=== PATIENT | female | born 1935 | race Caucasian/White ===

== ENCOUNTER 2016-09-11 23:12 | Inpatient (IN) | payer MEDICARE ==
[~2016-09-11] VITALS: Ht 152.4 cm; Wt 43.2 kg
--- NOTE | ~2016-09-11 | PROC NOTE ---
[place], [place] PROCEDURE NOTE NAME: SUNNY HARTLEY UNIT #: [id number] ROOM: 406 DOCTOR: FAB WILLIS BIRTHDATE: [birth year] DOS: 09/12/2016 Modified barium swallow with recent admission of dizziness, headache, weakness, nausea, vomiting. DIAGNOSES: Maxillary sinusitis, depression, protein calorie malnutrition. Current chest x-ray done on 09/12/2016 indicates no acute liver consolidation, ____ effusion or pulmonary edema compared to last chest x-ray. The patient reports that her daughter does indicate that she chokes a lot. She feels that she does not and she says she can eat anything. METHODS AND MATERIALS: The patient was seated in a chair as her wheelchair would not allow for fluoroscopy due to the height of wheelchair. The patient was hard of hearing but with increased vocal volume and some lip reading cues, she was able to follow simple directions and self-feed. Patient was then administered thin liquid via straw in 3 large sips, applesauce mixed with barium paste and ate ____ cracker mixed with barium paste. ORAL PHASE: The patient demonstrated some mild lengthy mastication, but it was suspected due to her dentition, but was adequate and she orally cleared cavity formed a cohesive bolus and transferred it well into the pharyngeal phase. There was some mild residue with solids, but she was ____ unable to clear with sequential swallows and asked for drink after the modified barium swallow to clear residue orally. PHARYNGEAL PHASE: Adequate timing, there was less than a second delay with the bolus falling into the vallecula where the swallow was triggered but this is normal in some individuals that are ageing. The patient demonstrated some mild to moderate residue was solid, but with dry sequential swallow she cleared that throughout the pharynx, adequate laryngeal ____ as well as adequate epiglottic closure to protect the airway, no penetration aspiration. RECOMMENDATIONS AND IMPRESSION: Functional and normal. Oral and pharyngeal phases. No diet recommendations are made at this time. No therapy warranted. Thank you for this referral. [place], [place] PROCEDURE NOTE NAME: SUNNY HARTLEY UNIT #: [id number] ROOM: 406 DOCTOR: FAB WILLIS BIRTHDATE: [birth year] FAB WILLIS CM:ANDREW:PROCEDURE NOTE 1100 [id number] FAB WILLIS
[~2016-09-11 23:12] MED LIST: ANTIVERT25 MG PO; ASPIRIN81 M1 PO; ATIVAN0.5 MG PO; ATIVAN1 MG PO; BRIN20TA PO; CYMBALTA60 MG PO; DARVOCET N 1001 TAB PO; DEBROX 15ML 1515 ML OT; DIABETA5 MG PO; DILTIAZEM HCL90 MG PO; DILTIAZEM90 MG PO; GLUCOPHAGE1000 MG PO; GLYBURIDE5 MG PO; IRON325 M1 PO; LISINOPRIL10 MG PO; METFORMIN HCL500 MG PO; METFORMIN1000 MG PO; PLAVIX75 MG PO; PRAVACHOL10 MG PO; SERTRALINE HYDR50 MG PO; THERAGRAN1 TA1 PO; VITAMIN D2000 IU PO
[2016-09-11 23:17] VITALS: BP 143/71
[2016-09-11] MEDS ORDERED: METFORMIN HCL500 MG PO (23:21)
[2016-09-11] MEDS ORDERED: DULOXETINE HCL60 MG PO (23:22)
[2016-09-11] MEDS ORDERED: GLYBURIDE5 MG PO (23:22)
[2016-09-11] MEDS ORDERED: NEURONTIN300 MG PO (23:22)
[2016-09-11] MEDS ORDERED: LISINOPRIL10 M1 PO (23:22)
[2016-09-11 23:35] LABS: BASO % 0.4 % (0.0-1.0); EOS # 0.1 10*3/uL (0.0-0.4); EOS % 1.7 % (1.0-4.0); HEMATOCRIT 32.6 % (37.0-47.0); HEMOGLOBIN 10.4 g/dl (12.0-16.0); IG # 0.1 10*3/uL (0.0-0.1); LYMPH # 1.1 10*3/uL (1.3-4.4); LYMPH % 13.7 % (27.0-41.0); MEAN CELL VOLUME 87.9 fl (81.0-99.0); MEAN CORPUSCULAR HGB CONC 31.9 g/dl (33.0-37.0); MONO # 0.4 10*3/uL (0.1-1.0); MONO % 5.3 % (3.0-9.0); NEUT # 6.4 10*3/uL (2.3-7.9); NEUT % 78.3 % (47.0-73.0); PLATELET COUNT AUTOMATED 351 10*3/uL (130-400); RED BLOOD COUNT 3.71 10*6/uL (4.10-5.10); RED CELL DISTRI WIDTH 13.4 % (0-14.5); WHITE BLOOD COUNT 8.2 10*3/uL (4.8-10.8)
[2016-09-12] VITALS (7 sets, daily range): BP systolic 112–184; BP diastolic 49–79
[2016-09-12 00:34] LABS: ALBUMIN 3.3 gm/dl (3.1-4.5); ALKALINE PHOSPHATASE 78 U/L (45-117); BILIRUBIN, DIRECT < 0.1 mg/dL (0.0-0.2); BILIRUBIN, TOTAL 0.2 mg/dl (0.2-1.0); BUN 22 mg/dl (7-24); CARBON DIOXIDE 28 mmol/L (21-32); CHLORIDE 101 mmol/L (98-107); EST GLOM FILT AFRICAN AMERICAN > 60 ml/min; GLUCOSE 306 mg/dL (65-99); MAGNESIUM 1.5 mg/dL (1.5-2.1); POTASSIUM 4.2 mmol/L (3.5-5.1); SGOT/AST 10 IU/L (3-35); SGPT/ALT 16 U/L (12-78); SODIUM 136 mmol/L (136-145); TOTAL PROTEIN 7.5 gm/dL (6.4-8.2)
[2016-09-12 00:35] LABS: TROPONIN I < 0.015 ng/ml (<0.045)
[2016-09-12 00:49] LABS: BILIRUBIN NEGATIVE (NEGATIVE); BLOOD TRACE-INTACT (NEGATIVE); CLARITY CLEAR (CLEAR); COLOR YELLOW (YELLOW); GLUCOSE 3+ (NEGATIVE); KETONE TRACE (NEGATIVE); LEUKO ESTERASE NEGATIVE (NEGATIVE); NITRITE NEGATIVE (NEGATIVE); PROTEIN NEGATIVE (NEGATIVE); SPECIFIC GRAVITY 1.015 (1.005-1.030); UROBILINOGEN 0.2 E.U./dl (0.2-1.0)
[2016-09-12 01:08] LABS: BACTERIA TRACE; EPITHELIAL CELLS 0-5; URINE REFLEX COMMENT NO (NO)
[2016-09-12 06:38] LABS: BASO % 0.4 % (0.0-1.0); EOS # 0.1 10*3/uL (0.0-0.4); EOS % 1.5 % (1.0-4.0); HEMATOCRIT 34.7 % (37.0-47.0); HEMOGLOBIN 11.1 g/dl (12.0-16.0); IG # 0.1 10*3/uL (0.0-0.1); LYMPH # 1.4 10*3/uL (1.3-4.4); LYMPH % 18.3 % (27.0-41.0); MEAN CELL VOLUME 88.5 fl (81.0-99.0); MEAN CORPUSCULAR HGB 28.3 pg (27.0-31.0); MEAN PLATELET VOLUME 10.1 fl (9.6-12.3); MONO # 0.5 10*3/uL (0.1-1.0); NEUT # 5.5 10*3/uL (2.3-7.9); NEUT % 73.1 % (47.0-73.0); PLATELET COUNT AUTOMATED 380 10*3/uL (130-400); RED BLOOD COUNT 3.92 10*6/uL (4.10-5.10); RED CELL DISTRI WIDTH 13.6 % (0-14.5); WHITE BLOOD COUNT 7.5 10*3/uL (4.8-10.8)
[2016-09-12 07:12] LABS: CARBON DIOXIDE 28 mmol/L (21-32); CHLORIDE 103 mmol/L (98-107); GLUCOSE 180 mg/dL (65-99); MAGNESIUM 1.6 mg/dL (1.5-2.1); POTASSIUM 4.6 mmol/L (3.5-5.1); SODIUM 140 mmol/L (136-145)
[2016-09-12 07:25] LABS: BUN 18 mg/dl (7-24); EST GLOM FILT AFRICAN AMERICAN > 60 ml/min; PHOSPHOROUS 3.1 mg/dL (2.5-4.9)
[2016-09-12 08:35] LABS: HEMOGLOBIN A1c 9.2 % (4.8-5.6)
[2016-09-12] MEDS ORDERED: METFORMIN500 MG PO (09:18)
[2016-09-12] MEDS ORDERED: GLYBURIDE5 MG PO (09:18)
[2016-09-12] MEDS ORDERED: DILTIAZEM HCL90 MG PO (09:19)
[2016-09-12] MEDS ORDERED: BUSPAR5 MG PO (09:19)
[2016-09-12 09:56] LABS: VITAMIN D, 25-HYDROXY 27.1 ng/mL (30-100)
[2016-09-12 09:57] LABS: FOLIC ACID > 24.00 ng/mL (>5.38)
[2016-09-13] VITALS: BP 129/53
[2016-09-13 06:29] LABS: BASO % 0.5 % (0.0-1.0); EOS # 0.2 10*3/uL (0.0-0.4); HEMATOCRIT 32.7 % (37.0-47.0); HEMOGLOBIN 10.2 g/dl (12.0-16.0); LYMPH # 1.3 10*3/uL (1.3-4.4); LYMPH % 22.4 % (27.0-41.0); MEAN CELL VOLUME 89.1 fl (81.0-99.0); MEAN CORPUSCULAR HGB 27.8 pg (27.0-31.0); MEAN CORPUSCULAR HGB CONC 31.2 g/dl (33.0-37.0); MEAN PLATELET VOLUME 10.5 fl (9.6-12.3); MONO # 0.4 10*3/uL (0.1-1.0); MONO % 5.9 % (3.0-9.0); NEUT % 66.7 % (47.0-73.0); PLATELET COUNT AUTOMATED 351 10*3/uL (130-400); RED BLOOD COUNT 3.67 10*6/uL (4.10-5.10); RED CELL DISTRI WIDTH 13.5 % (0-14.5)
[2016-09-13 06:55] LABS: BUN 13 mg/dl (7-24); CARBON DIOXIDE 30 mmol/L (21-32); CHLORIDE 108 mmol/L (98-107); EST GLOM FILT AFRICAN AMERICAN > 60 ml/min; GLUCOSE 134 mg/dL (65-99); POTASSIUM 4.5 mmol/L (3.5-5.1); SODIUM 143 mmol/L (136-145)
[2016-09-13 08:00] VITALS: BP 150/88
[2016-09-13 12:00] VITALS: BP 128/86
[2016-09-13 16:00] VITALS: BP 166/60
[2016-09-13 20:00] VITALS: BP 146/71
[2016-09-14] VITALS: BP 138/50
[2016-09-14 06:22] LABS: BASO % 0.3 % (0.0-1.0); EOS # 0.1 10*3/uL (0.0-0.4); EOS % 1.5 % (1.0-4.0); HEMATOCRIT 30.4 % (37.0-47.0); HEMOGLOBIN 9.7 g/dl (12.0-16.0); IG # 0.1 10*3/uL (0.0-0.1); LYMPH # 1.6 10*3/uL (1.3-4.4); LYMPH % 18.6 % (27.0-41.0); MEAN CELL VOLUME 89.1 fl (81.0-99.0); MEAN CORPUSCULAR HGB 28.4 pg (27.0-31.0); MEAN CORPUSCULAR HGB CONC 31.9 g/dl (33.0-37.0); MEAN PLATELET VOLUME 9.6 fl (9.6-12.3); MONO # 0.5 10*3/uL (0.1-1.0); NEUT # 6.4 10*3/uL (2.3-7.9); PLATELET COUNT AUTOMATED 307 10*3/uL (130-400); RED BLOOD COUNT 3.41 10*6/uL (4.10-5.10); RED CELL DISTRI WIDTH 13.8 % (0-14.5); WHITE BLOOD COUNT 8.7 10*3/uL (4.8-10.8)
[2016-09-14 08:00] VITALS: BP 150/74
[2016-09-14 12:00] VITALS: BP 151/83
[2016-09-14 16:00] VITALS: BP 152/73
[2016-09-14 20:00] VITALS: BP 155/77
[2016-09-15] VITALS: BP 140/68
[2016-09-15 06:04] LABS: BASO % 0.5 % (0.0-1.0); EOS # 0.3 10*3/uL (0.0-0.4); EOS % 3.2 % (1.0-4.0); HEMATOCRIT 32.4 % (37.0-47.0); HEMOGLOBIN 10.2 g/dl (12.0-16.0); LYMPH # 1.6 10*3/uL (1.3-4.4); LYMPH % 20.7 % (27.0-41.0); MEAN CELL VOLUME 89.5 fl (81.0-99.0); MEAN CORPUSCULAR HGB 28.2 pg (27.0-31.0); MEAN CORPUSCULAR HGB CONC 31.5 g/dl (33.0-37.0); MEAN PLATELET VOLUME 9.9 fl (9.6-12.3); MONO # 0.5 10*3/uL (0.1-1.0); MONO % 5.8 % (3.0-9.0); NEUT # 5.5 10*3/uL (2.3-7.9); NEUT % 69.3 % (47.0-73.0); PLATELET COUNT AUTOMATED 324 10*3/uL (130-400); RED BLOOD COUNT 3.62 10*6/uL (4.10-5.10); RED CELL DISTRI WIDTH 13.8 % (0-14.5); WHITE BLOOD COUNT 7.9 10*3/uL (4.8-10.8)
[2016-09-15 08:00] VITALS: BP 138/84; BP 184/78
[2016-09-15] MEDS ORDERED: NEURONTIN300 MG PO (11:51)
[2016-09-15] MEDS ORDERED: GLUCOPHAGE500 MG PO (11:51)
[2016-09-15] MEDS ORDERED: HYDROXYZINE PAM25 M1 PO (11:51)
[2016-09-15 12:00] VITALS: BP 149/52
== END 2016-09-15 14:40 | DRG 152 ==
LOC: ED 23:12 → EDHOLD 09-12 00:52 → 4E 09-12 00:52
PROVIDERS: Emergency Medicine; Hospitalist; Internal Medicine
PROC: BD1BYZZ Fluoroscopy of Mouth/Oropharynx using Other Contrast (ICD-10-PCS; principal; 2016-09-12)
DX: J01.00 Acute maxillary sinusitis, unspecified (principal); E11.00 Type 2 diabetes mellitus with hyperosmolarity without nonketotic hyperglycemic-hyperosmolar coma (NKHHC); E86.0 Dehydration; E11.42 Type 2 diabetes mellitus with diabetic polyneuropathy; E44.1 Mild protein-calorie malnutrition; F33.9 Major depressive disorder, recurrent, unspecified; R42 Dizziness and giddiness; R11.2 Nausea with vomiting, unspecified; I10 Essential (primary) hypertension; D64.9 Anemia, unspecified; E11.65 Type 2 diabetes mellitus with hyperglycemia; H90.3 Sensorineural hearing loss, bilateral; D72.825 Bandemia; F41.9 Anxiety disorder, unspecified; R51 Headache; Z96.1 Presence of intraocular lens; Z82.49 Family history of ischemic heart disease and other diseases of the circulatory system; Z82.3 Family history of stroke; Z98.49 Cataract extraction status, unspecified eye; Z79.82 Long term (current) use of aspirin; Z79.899 Other long term (current) drug therapy; Z79.84 Long term (current) use of oral hypoglycemic drugs; Z68.25 Body mass index [BMI] 25.0-25.9, adult; T42.6X5A Adverse effect of other antiepileptic and sedative-hypnotic drugs, initial encounter

== ENCOUNTER 2016-11-03 14:46 | Inpatient (IN) | payer MEDICARE ==
[~2016-11-03] VITALS: Ht 149.8 cm; Wt 44.1 kg
--- NOTE | ~2016-11-03 | CON ---
[place], [place] REPORT OF CONSULTATION NAME: SUNNY HARTLEY UNIT #: [id number] ROOM: 419 DOCTOR: SHAJI CASTILLO,JED BIRTHDATE: [birth year] DOS: 11/05/2016 NOTE: This dictation has been cancelled. JED GIRARD MD CM:CONSTR:REPORT OF CONSULTATION 11/05/16 0843 interface
--- NOTE | ~2016-11-03 | O ---
[place], [place] OPERATIVE NOTE NAME: SUNNY HARTLEY UNIT #: [id number] ROOM: 419 DOCTOR: JED GIRARD MD BIRTHDATE: [birth year] DOS: 11/05/2016 HISTOR OF PRESENT ILLNESS: The patient has presented with abnormal CT scan of the chest, atypical chest pain, . PAST MEDICAL HISTORY: Associated with diabetes, diabetic neuropathy, hypertension, depression, dysphagia, reflux symptomatology. PAST SURGICAL HISTORY: Cataract. SOCIAL HISTORY: Nonsmoker, nonalcohol consumer. FAMILY HISTORY: Noncontributory. ALLERGIES: No known medication. MEDICATIONS: List reviewed including ferrous sulfate, aspirin, and ranitidine. PROCEDURE: Today's procedure part of investigation is panendoscopy plus biopsy. PREMEDICATION: Versed and Diprivan. SCOPE: Olympus forward-viewing gastroscope Q10 video. REPORT: After putting the patient in left lateral position and application of lubricant to the scope, the scope was introduced. Thereafter, under direct visualization, I advanced through the length of the esophagus. Upper and mid esophagus within normal limit. Distal esophagus is expressing multiple distal esophageal ulceration and long segment Saeed esophagus. Photographic series obtained, biopsies obtained. Moderate size hiatal hernia was identified. Gastric pouch was entered. Gastritis of moderate degree seen. Antrum was biopsied for H. pylori. Duodenal bulb, second and third part within normal limit. The patient was gradually extubated and tolerated the procedure well. IMPRESSION: Distal esophageal multiple ulcers, long segment Saeed esophagus, both status post biopsy, moderate size hiatal hernia, mild gastritis. PLAN AND DISCUSSION: This patient has to be switched from H2 lorne to Protonix 40 mg 1 daily and Gaviscon Extra Strength 1 at bedtime, elevation of the head of the bed 6 inches all time. Follow up as an outpatient on distal esophageal biopsies which are expected to be expressing Saeed esophagus. Management as far as PPI is chronic for her. I thank you very much indeed for your kind referral. [place], [place] OPERATIVE NOTE NAME: SUNNY HARTLEY UNIT #: [id number] ROOM: 419 DOCTOR: JED GIRARD MD BIRTHDATE: [birth year] JED GIRARD MD CM:ZOEORD:OPERATIVE NOTE 0829 5 JED GIRARD MD 11/05/1636 interface
[~2016-11-03 14:46] MED LIST changes: +BUSPAR5 MG PO; +DULOXETINE HCL60 MG PO; +GLUCOPHAGE500 MG PO; +HYDROXYZINE PAM25 M1 PO; +LISINOPRIL10 M1 PO; +METFORMIN500 MG PO; +NEURONTIN300 MG PO
[2016-11-03 15:10] VITALS: BP 149/56
[2016-11-03 15:40] LABS: BILIRUBIN NEGATIVE (NEGATIVE); BLOOD NEGATIVE (NEGATIVE); CLARITY CLEAR (CLEAR); COLOR YELLOW (YELLOW); GLUCOSE 3+ (NEGATIVE); KETONE TRACE (NEGATIVE); LEUKO ESTERASE NEGATIVE (NEGATIVE); NITRITE NEGATIVE (NEGATIVE); PH 5.5 (5.0-9.0); PROTEIN NEGATIVE (NEGATIVE); UROBILINOGEN 0.2 E.U./dl (0.2-1.0)
[2016-11-03 15:47] LABS: BACTERIA 1+; RBC 0-2 rbc/hpf (0-2); URINE REFLEX COMMENT YES (NO)
[2016-11-03 16:22] LABS: BASO % 0.6 % (0.0-1.0); EOS # 0.1 10*3/uL (0.0-0.4); EOS % 1.2 % (1.0-4.0); HEMATOCRIT 33.3 % (37.0-47.0); HEMOGLOBIN 10.4 g/dl (12.0-16.0); LYMPH # 1.5 10*3/uL (1.3-4.4); LYMPH % 21.1 % (27.0-41.0); MEAN CORPUSCULAR HGB 28.4 pg (27.0-31.0); MEAN CORPUSCULAR HGB CONC 31.2 g/dl (33.0-37.0); MEAN PLATELET VOLUME 10.9 fl (9.6-12.3); MONO # 0.4 10*3/uL (0.1-1.0); MONO % 5.4 % (3.0-9.0); NEUT # 5.2 10*3/uL (2.3-7.9); NEUT % 71.4 % (47.0-73.0); PLATELET COUNT AUTOMATED 271 10*3/uL (130-400); RED BLOOD COUNT 3.66 10*6/uL (4.10-5.10); RED CELL DISTRI WIDTH 15.3 % (0-14.5); WHITE BLOOD COUNT 7.3 10*3/uL (4.8-10.8)
[2016-11-03 16:32] LABS: INTERNATIONAL NORM RATIO 0.9 (2.0-3.5)
[2016-11-03 16:37] LABS: ALBUMIN 3.3 gm/dl (3.1-4.5); ALKALINE PHOSPHATASE 90 U/L (45-117); BILIRUBIN, TOTAL 0.1 mg/dl (0.2-1.0); BUN 27 mg/dl (7-24); CARBON DIOXIDE 28 mmol/L (21-32); CHLORIDE 105 mmol/L (98-107); EST GLOM FILT AFRICAN AMERICAN > 60 ml/min; GLUCOSE 256 mg/dL (65-99); POTASSIUM 4.8 mmol/L (3.5-5.1); SGOT/AST 11 IU/L (3-35); SGPT/ALT 17 U/L (12-78); SODIUM 140 mmol/L (136-145); TOTAL PROTEIN 7.3 gm/dL (6.4-8.2)
[2016-11-03 16:40] LABS: CKMB 3.9 ng/ml (0.5-3.6); CPK 74 U/L (26-192); MAGNESIUM 1.7 mg/dL (1.5-2.1)
[2016-11-03 16:45] LABS: TROPONIN I < 0.015 ng/ml (<0.045)
[2016-11-03 17:57] VITALS: BP 142/62
[2016-11-03] MEDS ORDERED: METFORMIN HYD1000 MG PO (18:05)
[2016-11-03] MEDS ORDERED: VITAMIN D-32000 UNI1 PO (18:39)
[2016-11-03] MEDS ORDERED: COLACE100 MG PO (18:40)
[2016-11-03] MEDS ORDERED: FERROUS SULFAT324 M2 PO (18:41)
[2016-11-03] MEDS ORDERED: NEURONTIN300 MG PO (18:41)
[2016-11-03] MEDS ORDERED: ZANTAC 150150 MG PO (18:42)
[2016-11-03] MEDS ORDERED: CYMBALTA60 MG PO (18:42)
[2016-11-03 18:45] VITALS: BP 132/55
[2016-11-03 20:00] VITALS: BP 144/56
[2016-11-04] VITALS: BP 132/53
[2016-11-04 06:51] LABS: BASO % 0.5 % (0.0-1.0); EOS # 0.2 10*3/uL (0.0-0.4); EOS % 3.1 % (1.0-4.0); HEMATOCRIT 32.5 % (37.0-47.0); HEMOGLOBIN 10.2 g/dl (12.0-16.0); LYMPH # 1.4 10*3/uL (1.3-4.4); LYMPH % 21.9 % (27.0-41.0); MEAN CELL VOLUME 89.8 fl (81.0-99.0); MEAN CORPUSCULAR HGB 28.2 pg (27.0-31.0); MEAN CORPUSCULAR HGB CONC 31.4 g/dl (33.0-37.0); MEAN PLATELET VOLUME 11.4 fl (9.6-12.3); MONO # 0.5 10*3/uL (0.1-1.0); MONO % 7.6 % (3.0-9.0); NEUT # 4.3 10*3/uL (2.3-7.9); NEUT % 66.6 % (47.0-73.0); PLATELET COUNT AUTOMATED 242 10*3/uL (130-400); RED BLOOD COUNT 3.62 10*6/uL (4.10-5.10); WHITE BLOOD COUNT 6.5 10*3/uL (4.8-10.8)
[2016-11-04 06:57] LABS: BUN 21 mg/dl (7-24); CARBON DIOXIDE 27 mmol/L (21-32); CHLORIDE 104 mmol/L (98-107); EST GLOM FILT AFRICAN AMERICAN > 60 ml/min; GLUCOSE 207 mg/dL (65-99); MAGNESIUM 1.6 mg/dL (1.5-2.1); PHOSPHOROUS 2.5 mg/dL (2.5-4.9); POTASSIUM 4.5 mmol/L (3.5-5.1); SODIUM 139 mmol/L (136-145)
[2016-11-04 07:15] LABS: PROTHROMBIN TIME 10.3 SECONDS (9.0-12.4)
[2016-11-04 08:00] VITALS: BP 140/62
[2016-11-04 12:00] VITALS: BP 120/48
[2016-11-04 16:00] VITALS: BP 125/63
[2016-11-04 20:00] VITALS: BP 140/49
[2016-11-05] VITALS (9 sets, daily range): BP systolic 136–168; BP diastolic 52–88
[2016-11-05 07:10] LABS: BASO % 0.5 % (0.0-1.0); EOS # 0.2 10*3/uL (0.0-0.4); EOS % 3.3 % (1.0-4.0); HEMATOCRIT 29.4 % (37.0-47.0); HEMOGLOBIN 9.1 g/dl (12.0-16.0); LYMPH # 1.6 10*3/uL (1.3-4.4); LYMPH % 27.6 % (27.0-41.0); MEAN CELL VOLUME 90.5 fl (81.0-99.0); MEAN PLATELET VOLUME 11.3 fl (9.6-12.3); MONO # 0.4 10*3/uL (0.1-1.0); MONO % 6.7 % (3.0-9.0); NEUT # 3.5 10*3/uL (2.3-7.9); NEUT % 61.7 % (47.0-73.0); PLATELET COUNT AUTOMATED 226 10*3/uL (130-400); RED BLOOD COUNT 3.25 10*6/uL (4.10-5.10); RED CELL DISTRI WIDTH 14.9 % (0-14.5); WHITE BLOOD COUNT 5.7 10*3/uL (4.8-10.8)
[2016-11-05 07:35] LABS: BUN 14 mg/dl (7-24); CARBON DIOXIDE 25 mmol/L (21-32); CHLORIDE 107 mmol/L (98-107); EST GLOM FILT AFRICAN AMERICAN > 60 ml/min; GLUCOSE 126 mg/dL (65-99); POTASSIUM 4.2 mmol/L (3.5-5.1); SODIUM 141 mmol/L (136-145)
[2016-11-05] MEDS ORDERED: GAVISCON 80 MG-1 CT1 PO (09:57)
[2016-11-05] MEDS ORDERED: PANTOPRAZOLE SO40 MG PO (09:57)
[2016-11-06] VITALS: BP 151/69
[2016-11-06 05:12] LABS: BUN 11 mg/dl (7-24); CARBON DIOXIDE 28 mmol/L (21-32); CHLORIDE 108 mmol/L (98-107); EST GLOM FILT AFRICAN AMERICAN > 60 ml/min; GLUCOSE 177 mg/dL (65-99); POTASSIUM 4.3 mmol/L (3.5-5.1); SODIUM 140 mmol/L (136-145)
[2016-11-06 06:08] LABS: BASO % 0.4 % (0.0-1.0); EOS # 0.2 10*3/uL (0.0-0.4); EOS % 1.9 % (1.0-4.0); HEMATOCRIT 30.9 % (37.0-47.0); HEMOGLOBIN 9.5 g/dl (12.0-16.0); LYMPH # 1.6 10*3/uL (1.3-4.4); LYMPH % 20.4 % (27.0-41.0); MEAN CELL VOLUME 92.2 fl (81.0-99.0); MEAN CORPUSCULAR HGB 28.4 pg (27.0-31.0); MEAN CORPUSCULAR HGB CONC 30.7 g/dl (33.0-37.0); MEAN PLATELET VOLUME 11.5 fl (9.6-12.3); MONO # 0.5 10*3/uL (0.1-1.0); MONO % 6.1 % (3.0-9.0); NEUT # 5.5 10*3/uL (2.3-7.9); NEUT % 70.8 % (47.0-73.0); PLATELET COUNT AUTOMATED 243 10*3/uL (130-400); RED BLOOD COUNT 3.35 10*6/uL (4.10-5.10); RED CELL DISTRI WIDTH 15.3 % (0-14.5); WHITE BLOOD COUNT 7.8 10*3/uL (4.8-10.8)
[2016-11-06 08:00] VITALS: BP 160/66
[2016-11-06] MEDS ORDERED: CIPRO500 MG PO (09:21)
[2016-11-06] MEDS ORDERED: ATIVAN0.5 MG PO (09:22)
[2016-11-06 12:00] VITALS: BP 142/73
== END 2016-11-06 13:01 | disposition home or self-care (01) | DRG 689 ==
LOC: ED 14:46 → EDHOLD 17:39 → 4E 17:39
PROVIDERS: Emergency Medicine; Internal Medicine Nephrology; Registered Nurse
DX: N39.0 Urinary tract infection, site not specified (principal); G93.41 Metabolic encephalopathy; E11.49 Type 2 diabetes mellitus with other diabetic neurological complication; E11.65 Type 2 diabetes mellitus with hyperglycemia; K22.10 Ulcer of esophagus without bleeding; K22.8 Other specified diseases of esophagus; R41.840 Attention and concentration deficit; D64.9 Anemia, unspecified; D72.810 Lymphocytopenia; R81 Glycosuria; I10 Essential (primary) hypertension; F32.9 Major depressive disorder, single episode, unspecified; K20.9 Esophagitis, unspecified; F41.9 Anxiety disorder, unspecified; K29.70 Gastritis, unspecified, without bleeding; K22.70 Barrett's esophagus without dysplasia; K44.9 Diaphragmatic hernia without obstruction or gangrene; R26.9 Unspecified abnormalities of gait and mobility; H91.90 Unspecified hearing loss, unspecified ear; Z96.1 Presence of intraocular lens; Z60.2 Problems related to living alone; Z98.42 Cataract extraction status, left eye; Z98.41 Cataract extraction status, right eye; Z82.3 Family history of stroke; Z82.49 Family history of ischemic heart disease and other diseases of the circulatory system; Z79.82 Long term (current) use of aspirin; Z79.84 Long term (current) use of oral hypoglycemic drugs; Z79.899 Other long term (current) drug therapy

== ENCOUNTER 2016-12-01 12:07 | Inpatient (IN) | payer MEDICARE ==
[~2016-12-01] VITALS: Ht 149.8 cm; Wt 46.3 kg
[~2016-12-01 12:07] MED LIST changes: +CIPRO500 MG PO; +COLACE100 MG PO; +FERROUS SULFAT324 M2 PO; +GAVISCON 80 MG-1 CT1 PO; +METFORMIN HYD1000 MG PO; +PANTOPRAZOLE SO40 MG PO; +VITAMIN D-32000 UNI1 PO; +ZANTAC 150150 MG PO
[2016-12-01 12:13] VITALS: BP 130/50
[2016-12-01 12:40] LABS: BASO # 0.1 10*3/uL (0.0-0.1); BASO % 0.6 % (0.0-1.0); EOS # 0.3 10*3/uL (0.0-0.4); EOS % 3.3 % (1.0-4.0); HEMATOCRIT 31.1 % (37.0-47.0); HEMOGLOBIN 9.7 g/dl (12.0-16.0); LYMPH # 1.6 10*3/uL (1.3-4.4); LYMPH % 20.8 % (27.0-41.0); MEAN CELL VOLUME 90.4 fl (81.0-99.0); MEAN CORPUSCULAR HGB 28.2 pg (27.0-31.0); MEAN CORPUSCULAR HGB CONC 31.2 g/dl (33.0-37.0); MEAN PLATELET VOLUME 10.6 fl (9.6-12.3); MONO # 0.5 10*3/uL (0.1-1.0); NEUT # 5.4 10*3/uL (2.3-7.9); PLATELET COUNT AUTOMATED 297 10*3/uL (130-400); RED BLOOD COUNT 3.44 10*6/uL (4.10-5.10); RED CELL DISTRI WIDTH 14.9 % (0-14.5); WHITE BLOOD COUNT 7.8 10*3/uL (4.8-10.8)
[2016-12-01 12:56] LABS: ALBUMIN 3.3 gm/dl (3.1-4.5); ALKALINE PHOSPHATASE 92 U/L (45-117); BUN 26 mg/dl (7-24); CHLORIDE 104 mmol/L (98-107); CREATININE 0.79 mg/dL (0.55-1.02); MAGNESIUM 1.8 mg/dL (1.5-2.1); SGOT/AST 24 IU/L (3-35); SGPT/ALT 35 U/L (12-78); SODIUM 139 mmol/L (136-145); TOTAL PROTEIN 7.6 gm/dL (6.4-8.2)
--- NOTE | 2016-12-01 12:58 | NUR ---
REPORT BEING CALLED AT THIS TIME FOR PT ADMISSION.
--- NOTE | 2016-12-01 13:12 | NUR ---
PT BEING TRANSFERRED TO 4TH FLOOR AT THIS TIME.
[2016-12-01 13:25] VITALS: BP 167/64
--- NOTE | 2016-12-01 13:42 | NUR ---
[facility] 80, admitted to , under the services of MIYA Wilburn DO with a diagnosis of ANGIOEDEMA LIPS. Chief complaint is RASH/HIVES. Patient arrived via bed from ER. Monitor applied. Initial assessment completed. Vital signs taken and recorded. MIYA WILBURN DO notified of admission to the unit. Orders received. See assessment for past medical history, medications and allergies. Patient and/or family oriented to unit. [facility]. Clothing/patient valuable form completed. LINDY ROBERTSON
[2016-12-01] MEDS ORDERED: REMERON15 M2 PO (14:07)
[2016-12-01] MEDS ORDERED: BUSPAR5 MG PO (14:08)
[2016-12-01 16:19] VITALS: BP 131/57
--- NOTE | 2016-12-01 20:10 | NUR ---
WOUND PHOTOS TAKEN AT THIS TIME OF SKIN TEARS TO PT'S RIGHT ARM. AWAITING WOUND CARE ORDERS, IN THE MEANTIME A NON-ADHERENT DRESSING AND ROLLED GAUZE APPLIED. PT TOLERATED WELL.
[2016-12-01 20:25] VITALS: BP 155/71
--- NOTE | 2016-12-01 20:55 | NUR ---
MEDICATED WITH TYLENOL PER PRN ORDER FOR COMPLAINTS OF BACK ACHE. WILL MONITOR FOR EFFECTIVENESS.
--- NOTE | 2016-12-01 21:16 | NUR ---
DR ARNOLD NOTIFIED OF PT'S BLOOD GLUCOSE OF 417, AND PT IS NOT ORDERED SLIDING SCALE COVERAGE.
--- NOTE | 2016-12-01 22:30 | NUR ---
PT STATES TYLENOL EFFECTIVE FOR BACK ACHES RELIEF.
[2016-12-02] VITALS: BP 131/63
--- NOTE | 2016-12-02 02:56 | NUR ---
PT VERY RESTLESS AT THIS TIME. MEDICATED WITH ATIVAN PER PRN ORDER. WILL MONITOR FOR EFFECTIVENESS.
--- NOTE | 2016-12-02 04:00 | NUR ---
Patient resting quietly with no c/o discomfort. Respirations easy and regular. Vital signs stable. No overt distress. Ativan appears effective.
[2016-12-02 06:59] LABS: BASO % 0.1 % (0.0-1.0); HEMOGLOBIN 9.7 g/dl (12.0-16.0); LYMPH # 0.8 10*3/uL (1.3-4.4); LYMPH % 10.7 % (27.0-41.0); MEAN CELL VOLUME 90.4 fl (81.0-99.0); MEAN CORPUSCULAR HGB 28.3 pg (27.0-31.0); MEAN CORPUSCULAR HGB CONC 31.3 g/dl (33.0-37.0); MEAN PLATELET VOLUME 11.6 fl (9.6-12.3); MONO # 0.1 10*3/uL (0.1-1.0); MONO % 0.8 % (3.0-9.0); NEUT # 6.6 10*3/uL (2.3-7.9); NEUT % 87.7 % (47.0-73.0); PLATELET COUNT AUTOMATED 300 10*3/uL (130-400); RED BLOOD COUNT 3.43 10*6/uL (4.10-5.10); RED CELL DISTRI WIDTH 14.7 % (0-14.5); WHITE BLOOD COUNT 7.5 10*3/uL (4.8-10.8)
--- NOTE | 2016-12-02 07:30 | NUR ---
ASSUMED CARE OF PT AT THIS TIME, PT CONTINUES TO GET 0OB MULTIPLE TIMES ALARMS SOUNDING STAAFF PRESENT, EDUCATION PROVIDED ON THE IMPORTANCE OF CALLING FOR ASSSISTANCE USING CALL LIGHT, PT HAS PERIODS OF BEING FORGETFUL
[2016-12-02 07:38] LABS: ALBUMIN 3.3 gm/dl (3.1-4.5); ALKALINE PHOSPHATASE 97 U/L (45-117); BUN 27 mg/dl (7-24); CHLORIDE 105 mmol/L (98-107); CREATININE 0.85 mg/dL (0.55-1.02); POTASSIUM 4.5 mmol/L (3.5-5.1); SGOT/AST 21 IU/L (3-35); SGPT/ALT 33 U/L (12-78); SODIUM 139 mmol/L (136-145); TOTAL PROTEIN 7.7 gm/dL (6.4-8.2)
[2016-12-02 08:00] VITALS: BP 176/86
--- NOTE | 2016-12-02 08:30 | NUR ---
SUNNY HARTLEY [id number] Please refer to the physician's history and physical for past medical history, comorbid conditions, and allergies. Diagnosis: ANGIOEDEMA OF LIPS Gerard Score: 17,AT RISK WOUND DESCRIPTIONS: Location of the wound: right upper arm proximal Type of wound: skin tear Thickness: Partial Size: 0.4cm x 0.7cm x <0.1cm Tunneling: none Undermining: none Sinus Tract: none Presence of Exudate: none Amount: None Color: Red Odor: None Periwound Skin Appearance: Normal Wound edges: approximated Pain (associated with wound): none at time of assessment How does patient state this happened? pt stated she fell and hit the bedside table Location of the wound: right upper arm distal Type of wound: skin tear Thickness: Partial Size: 0.3cm x 2.1cm x <0.1cm Tunneling: none Undermining: none Sinus Tract: none Presence of Exudate: Amount: None Color: Red Odor: None Periwound Skin Appearance: Normal Wound edges: approximated Pain (associated with wound): none at time of assessment Surface the patient is resting on: Isoflex SKIN PREVENTION RECOMMENDATION: 1. Pressure redistribution support surface as appropriate 2. Elevate heels 3. Remove boots/TEDS every shift and reapply 4. Head of bed 30 degrees as tolerated 5. Assess nutrition and hydration 6. Manage moisture 7. Avoid the use of containment devices while in bed 8. Use absorptive products on surfaces limit layers of linens on bed 9. Turn and reposition every 1-2 hours in bed and every 1 hour in chair as tolerated 10. Weight shifts every 15 minutes while up in chair 11. Offloading with pillows or device to keep heels elevated off bed 12. Monitor skin at least every shift 13. Inspect under medical devices twice a day WOUND TREATMENT RECOMMENDATIONS: Skin tear guidelines.
--- NOTE | 2016-12-02 09:00 | NUR ---
Internal Grinder Tender in to talk to patient. Patient states lives at home with alone. There are few steps in the home. Physician: stewart falcon [facility]acy: [facility] Home health services: none Patient's level of ADLs: INDEPENDENT Patient has working utilities: all working DME: cane/walker Follow-up physician's appointment after d/c: will be made by hospitalist nurse director upon discharge Does patient want to access PORTAL?: no Discharge plan discussed with patient patient lives at home alone, she has help from her family, she uses a cane or walker at home, she is independent in adls and meal preparation, patient will be going back home when medically stable and denies any home needs. MIQUEL TELLES
[2016-12-02] MEDS ORDERED: PREDNISONE20 M1 PO (10:13)
--- NOTE | 2016-12-02 10:14 | NUR ---
PT C/O H/A ADMININSTERED PRN TYLENO, 650MG ORDERED, RATES PAIN 410, WILL MONITOR EFFECTS
[2016-12-02 10:58] LABS: BILIRUBIN NEGATIVE (NEGATIVE); BLOOD NEGATIVE (NEGATIVE); CLARITY CLEAR (CLEAR); COLOR YELLOW (YELLOW); GLUCOSE 3+ (NEGATIVE); KETONE TRACE (NEGATIVE); LEUKO ESTERASE NEGATIVE (NEGATIVE); NITRITE NEGATIVE (NEGATIVE); PH 5.5 (5.0-9.0); SPECIFIC GRAVITY 1.015 (1.005-1.030); UROBILINOGEN 0.2 E.U./dl (0.2-1.0)
--- NOTE | 2016-12-02 11:00 | NUR ---
PT NO LONGER C/O H/A, TYLENOL 650MG PO PRN EFFECTIVE AT THIS TIME
[2016-12-02 11:09] LABS: BACTERIA TRACE; MUCOUS 1+; WBC 0-2 wbc/hpf (0-5)
--- NOTE | 2016-12-02 11:47 | NUR ---
Discharge instructions reviewed with patient/family. Patient receptive and verbalizes understanding. Follow-up care arranged. Written instructions given to patient/family. STEVEN MYLES
== END 2016-12-02 11:47 | disposition home or self-care (01) | DRG 916 ==
LOC: ED 12:07 → 4E 12:32 → 4NE 12:32 → 4E 12:34
PROVIDERS: Emergency Medicine; Registered Nurse; ADMIT Internal Medicine
DX: T78.3XXA Angioneurotic edema, initial encounter (principal); E44.0 Moderate protein-calorie malnutrition; E11.40 Type 2 diabetes mellitus with diabetic neuropathy, unspecified; K22.70 Barrett's esophagus without dysplasia; T46.4X5A Adverse effect of angiotensin-converting-enzyme inhibitors, initial encounter; F32.9 Major depressive disorder, single episode, unspecified; Z96.1 Presence of intraocular lens; E55.9 Vitamin D deficiency, unspecified; D64.9 Anemia, unspecified; H91.90 Unspecified hearing loss, unspecified ear; I10 Essential (primary) hypertension; Z68.20 Body mass index [BMI] 20.0-20.9, adult; Z98.42 Cataract extraction status, left eye; Z98.41 Cataract extraction status, right eye; Y92.89 Other specified places as the place of occurrence of the external cause; Z82.49 Family history of ischemic heart disease and other diseases of the circulatory system; Z82.3 Family history of stroke; Z79.82 Long term (current) use of aspirin; Z79.84 Long term (current) use of oral hypoglycemic drugs; Z79.899 Other long term (current) drug therapy

== ENCOUNTER 2017-08-15 07:51 | Inpatient (IN) | payer MEDICARE ==
[~2017-08-15] VITALS: Ht 149.8 cm; Wt 45.2 kg
[~2017-08-15 07:51] MED LIST changes: +PREDNISONE20 M1 PO; +REMERON15 M2 PO
[2017-08-15 07:52] VITALS: BP 137/73
[2017-08-15 08:18] LABS: BASO % 0.6 % (0.0-1.0); EOS # 0.1 10*3/uL (0.0-0.4); EOS % 1.7 % (1.0-4.0); HEMATOCRIT 39.3 % (37.0-47.0); HEMOGLOBIN 12.8 g/dl (12.0-16.0); LYMPH # 1.5 10*3/uL (1.3-4.4); LYMPH % 21.4 % (27.0-41.0); MEAN CELL VOLUME 90.6 fl (81.0-99.0); MEAN CORPUSCULAR HGB 29.5 pg (27.0-31.0); MEAN CORPUSCULAR HGB CONC 32.6 g/dl (33.0-37.0); MEAN PLATELET VOLUME 10.9 fl (9.6-12.3); MONO # 0.4 10*3/uL (0.1-1.0); MONO % 5.8 % (3.0-9.0); NEUT # 4.9 10*3/uL (2.3-7.9); NEUT % 70.2 % (47.0-73.0); PLATELET COUNT AUTOMATED 285 10*3/uL (130-400); RED BLOOD COUNT 4.34 10*6/uL (4.10-5.10); RED CELL DISTRI WIDTH 14.4 % (0-14.5)
[2017-08-15 08:27] LABS: ACT PARTIAL THROMBO TIME 24.4 SECONDS (20.8-31.5); INTERNATIONAL NORM RATIO 0.9 (2.0-3.5)
[2017-08-15 08:34] LABS: ALBUMIN 3.9 gm/dl (3.1-4.5); ALKALINE PHOSPHATASE 76 U/L (45-117); BUN 21 mg/dl (7-24); CHLORIDE 100 mmol/L (98-107); CREATININE 0.83 mg/dL (0.55-1.02); POTASSIUM 4.1 mmol/L (3.5-5.1); SGOT/AST 11 IU/L (3-35); SGPT/ALT 18 U/L (12-78); SODIUM 136 mmol/L (136-145); TOTAL PROTEIN 8.1 gm/dL (6.4-8.2)
[2017-08-15 08:58] LABS: BILIRUBIN NEGATIVE (NEGATIVE); BLOOD NEGATIVE (NEGATIVE); CLARITY CLEAR (CLEAR); COLOR YELLOW (YELLOW); GLUCOSE 1+ (NEGATIVE); KETONE TRACE (NEGATIVE); LEUKO ESTERASE 2+ (NEGATIVE); NITRITE NEGATIVE (NEGATIVE); PH 5.5 (5.0-9.0); SPECIFIC GRAVITY 1.025 (1.005-1.030); UROBILINOGEN 0.2 E.U./dl (0.2-1.0)
[2017-08-15 09:20] LABS: BACTERIA 2+; WBC 21-30 wbc/hpf (0-5)
[2017-08-15 11:20] VITALS: BP 118/78
[2017-08-15 12:12] VITALS: BP 110/66
[2017-08-15 16:00] VITALS: BP 178/68
[2017-08-15 20:00] VITALS: BP 148/66
[2017-08-16] VITALS: BP 160/80
[2017-08-16 06:55] LABS: BASO # 0.1 10*3/uL (0.0-0.1); BASO % 0.7 % (0.0-1.0); EOS # 0.1 10*3/uL (0.0-0.4); EOS % 1.3 % (1.0-4.0); HEMATOCRIT 37.4 % (37.0-47.0); HEMOGLOBIN 11.9 g/dl (12.0-16.0); LYMPH # 1.7 10*3/uL (1.3-4.4); MEAN CELL VOLUME 91.4 fl (81.0-99.0); MEAN CORPUSCULAR HGB 29.1 pg (27.0-31.0); MEAN CORPUSCULAR HGB CONC 31.8 g/dl (33.0-37.0); MEAN PLATELET VOLUME 10.6 fl (9.6-12.3); MONO # 0.5 10*3/uL (0.1-1.0); MONO % 5.5 % (3.0-9.0); NEUT % 72.1 % (47.0-73.0); PLATELET COUNT AUTOMATED 283 10*3/uL (130-400); RED BLOOD COUNT 4.09 10*6/uL (4.10-5.10); RED CELL DISTRI WIDTH 14.4 % (0-14.5); WHITE BLOOD COUNT 8.3 10*3/uL (4.8-10.8)
[2017-08-16 07:07] LABS: ALBUMIN 3.6 gm/dl (3.1-4.5); ALKALINE PHOSPHATASE 74 U/L (45-117); BUN 18 mg/dl (7-24); CHLORIDE 102 mmol/L (98-107); CHOLESTEROL 242 mg/dL (<200); CREATININE 0.64 mg/dL (0.55-1.02); HDL CHOLESTEROL 62 mg/dl (40-60); LDL CHOLESTEROL 165 mg/dL (9-159); PHOSPHOROUS 3.7 mg/dL (2.5-4.9); POTASSIUM 3.8 mmol/L (3.5-5.1); SGOT/AST 13 IU/L (3-35); SGPT/ALT 17 U/L (12-78); SODIUM 139 mmol/L (136-145); TOTAL PROTEIN 7.8 gm/dL (6.4-8.2); TRIGLYCERIDES 77 mg/dl (<150); VLDL CHOLESTEROL 15 mg/dL (6-40)
[2017-08-16 07:29] LABS: ACT PARTIAL THROMBO TIME 23.6 SECONDS (20.8-31.5); INTERNATIONAL NORM RATIO 0.9 (2.0-3.5)
[2017-08-16 08:00] VITALS: BP 144/79
[2017-08-16 08:59] LABS: VITAMIN D, 25-HYDROXY 38.5 ng/mL (30-100)
[2017-08-16 12:00] VITALS: BP 138/86
[2017-08-16 16:00] VITALS: BP 145/67
[2017-08-16 20:00] VITALS: BP 140/68
[2017-08-17] VITALS: BP 140/70
[2017-08-17 06:42] LABS: BASO % 0.5 % (0.0-1.0); BUN 15 mg/dl (7-24); CHLORIDE 103 mmol/L (98-107); CREATININE 0.54 mg/dL (0.55-1.02); EOS # 0.2 10*3/uL (0.0-0.4); EOS % 2.3 % (1.0-4.0); LYMPH # 1.7 10*3/uL (1.3-4.4); MEAN CELL VOLUME 91.9 fl (81.0-99.0); MEAN CORPUSCULAR HGB 28.9 pg (27.0-31.0); MEAN CORPUSCULAR HGB CONC 31.4 g/dl (33.0-37.0); MONO # 0.5 10*3/uL (0.1-1.0); MONO % 7.8 % (3.0-9.0); NEUT # 4.3 10*3/uL (2.3-7.9); NEUT % 64.1 % (47.0-73.0); PLATELET COUNT AUTOMATED 259 10*3/uL (130-400); RED BLOOD COUNT 3.81 10*6/uL (4.10-5.10); RED CELL DISTRI WIDTH 14.6 % (0-14.5); SODIUM 140 mmol/L (136-145); WHITE BLOOD COUNT 6.6 10*3/uL (4.8-10.8)
[2017-08-17 08:00] VITALS: BP 151/81
[2017-08-17 12:00] VITALS: BP 153/48
[2017-08-17 16:00] VITALS: BP 131/63
[2017-08-17 20:00] VITALS: BP 129/64
[2017-08-18] VITALS: BP 143/56
[2017-08-18 01:37] VITALS: BP 152/58
[2017-08-18 08:00] VITALS: BP 160/83
[2017-08-18] MEDS ORDERED: ZOSYN 3.373.375 GM/5 IV (10:23)
[2017-08-18] MEDS ORDERED: Humalog SQ (10:23)
[2017-08-18] MEDS ORDERED: LORAZEPAM0.5 MG PO (10:26)
[2017-08-18] MEDS ORDERED: LIPITOR10 MG PO (10:26)
[2017-08-18] MEDS ORDERED: TYLENOL325 M2 PO (10:28)
[2017-08-18] MEDS ORDERED: AKWA TEARS 15 M15 ML OPH (10:28)
[2017-08-18] MEDS ORDERED: 50% DEXTRO25 GM/50 M IV (10:28)
[2017-08-18 12:00] VITALS: BP 155/82
== END 2017-08-18 15:00 | disposition other institution (70) | DRG 871 ==
LOC: ED 07:51 → 4E 09:53 → EDHOLD 09:53 → 4E 10:10
PROVIDERS: Internal Medicine; Student in an Organized Health Care Education/Training Program
DX: A41.9 Sepsis, unspecified organism (principal); G93.41 Metabolic encephalopathy; E11.42 Type 2 diabetes mellitus with diabetic polyneuropathy; E11.65 Type 2 diabetes mellitus with hyperglycemia; N39.0 Urinary tract infection, site not specified; F32.9 Major depressive disorder, single episode, unspecified; I10 Essential (primary) hypertension; E86.0 Dehydration; D72.810 Lymphocytopenia; R81 Glycosuria; R82.4 Acetonuria; L50.9 Urticaria, unspecified; R80.9 Proteinuria, unspecified; E55.9 Vitamin D deficiency, unspecified; D64.9 Anemia, unspecified; H91.90 Unspecified hearing loss, unspecified ear; R53.83 Other fatigue; K22.719 Barrett's esophagus with dysplasia, unspecified; Z82.49 Family history of ischemic heart disease and other diseases of the circulatory system; Z82.3 Family history of stroke; Z88.8 Allergy status to other drugs, medicaments and biological substances; Z79.82 Long term (current) use of aspirin; Z79.4 Long term (current) use of insulin; Z79.84 Long term (current) use of oral hypoglycemic drugs; Z79.899 Other long term (current) drug therapy; Z98.42 Cataract extraction status, left eye; Z98.41 Cataract extraction status, right eye; Z87.440 Personal history of urinary (tract) infections; B96.5 Pseudomonas (aeruginosa) (mallei) (pseudomallei) as the cause of diseases classified elsewhere

== ENCOUNTER 2017-08-31 23:47 | Emergency (ER) | payer MEDICARE ==
[~2017-08-31] VITALS: Ht 149.8 cm
[~2017-08-31 23:47] MED LIST changes: +50% DEXTRO25 GM/50 M IV; +AKWA TEARS 15 M15 ML OPH; +Humalog SQ; +LIPITOR10 MG PO; +LORAZEPAM0.5 MG PO; +TYLENOL325 M2 PO; +ZOSYN 3.373.375 GM/5 IV
[2017-09-01 01:20] LABS: ALBUMIN 3.1 gm/dl (3.1-4.5); ALKALINE PHOSPHATASE 79 U/L (45-117); BUN 18 mg/dl (7-24); CHLORIDE 107 mmol/L (98-107); CREATININE 0.73 mg/dL (0.55-1.02); POTASSIUM 4.2 mmol/L (3.5-5.1); SGOT/AST 16 IU/L (3-35); SGPT/ALT 29 U/L (12-78); SODIUM 141 mmol/L (136-145); TOTAL PROTEIN 7.2 gm/dL (6.4-8.2)
[2017-09-01 01:22] LABS: BASO # 0.1 10*3/uL (0.0-0.1); BASO % 0.6 % (0.0-1.0); EOS # 0.4 10*3/uL (0.0-0.4); EOS % 4.8 % (1.0-4.0); HEMATOCRIT 31.4 % (37.0-47.0); HEMOGLOBIN 9.8 g/dl (12.0-16.0); LYMPH # 1.5 10*3/uL (1.3-4.4); LYMPH % 17.4 % (27.0-41.0); MEAN CORPUSCULAR HGB 29.3 pg (27.0-31.0); MEAN CORPUSCULAR HGB CONC 31.2 g/dl (33.0-37.0); MEAN PLATELET VOLUME 10.8 fl (9.6-12.3); MONO # 0.7 10*3/uL (0.1-1.0); NEUT # 6.1 10*3/uL (2.3-7.9); NEUT % 68.6 % (47.0-73.0); PLATELET COUNT AUTOMATED 349 10*3/uL (130-400); RED BLOOD COUNT 3.34 10*6/uL (4.10-5.10); WHITE BLOOD COUNT 8.9 10*3/uL (4.8-10.8)
[2017-09-01 01:25] LABS: TROPONIN I < 0.015 ng/ml (<0.045)
== END 2017-09-01 05:21 | disposition home or self-care (01) ==
LOC: ED 23:47
PROVIDERS: Emergency Medicine Emergency Medical Services
DX: S00.83XA Contusion of other part of head, initial encounter (principal); S80.01XA Contusion of right knee, initial encounter; M17.11 Unilateral primary osteoarthritis, right knee; I10 Essential (primary) hypertension; F32.9 Major depressive disorder, single episode, unspecified; E11.40 Type 2 diabetes mellitus with diabetic neuropathy, unspecified; Z88.8 Allergy status to other drugs, medicaments and biological substances; Z79.82 Long term (current) use of aspirin; W22.8XXA Striking against or struck by other objects, initial encounter; Y93.89 Activity, other specified; Y92.89 Other specified places as the place of occurrence of the external cause; Y99.8 Other external cause status

== ENCOUNTER 2017-10-21 11:06 | Emergency (ER) | payer MEDICARE ==
[~2017-10-21] VITALS: Ht 152.4 cm; Wt 49.9 kg
--- NOTE | ~2017-10-21 | EKG ---
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 Electronically Signed On 10-21-2017 14:26:44 PDT by Lonny Guo MD CM:EKGRPT:ELECTROCARDIOGRAM REPORT [id number] 1426 CHELA TEMPLE DRAFT REPORT CHELA ORR DO
[2017-10-21 12:14] LABS: BASO # 0.1 10*3/uL (0.0-0.1); BASO % 0.7 % (0.0-1.0); EOS # 0.1 10*3/uL (0.0-0.4); EOS % 1.4 % (1.0-4.0); HEMATOCRIT 33.9 % (37.0-47.0); HEMOGLOBIN 10.8 g/dl (12.0-16.0); LYMPH # 1.7 10*3/uL (1.3-4.4); LYMPH % 24.3 % (27.0-41.0); MEAN CELL VOLUME 92.4 fl (81.0-99.0); MEAN CORPUSCULAR HGB 29.4 pg (27.0-31.0); MEAN CORPUSCULAR HGB CONC 31.9 g/dl (33.0-37.0); MEAN PLATELET VOLUME 10.8 fl (9.6-12.3); MONO # 0.4 10*3/uL (0.1-1.0); MONO % 5.9 % (3.0-9.0); NEUT # 4.8 10*3/uL (2.3-7.9); NEUT % 67.3 % (47.0-73.0); PLATELET COUNT AUTOMATED 292 10*3/uL (130-400); RED BLOOD COUNT 3.67 10*6/uL (4.10-5.10); RED CELL DISTRI WIDTH 13.7 % (0-14.5); WHITE BLOOD COUNT 7.1 10*3/uL (4.8-10.8)
[2017-10-21 12:22] LABS: ACT PARTIAL THROMBO TIME 23.6 SECONDS (20.8-31.5)
[2017-10-21 12:28] LABS: ALBUMIN 3.7 gm/dl (3.1-4.5); ALKALINE PHOSPHATASE 66 U/L (45-117); BUN 19 mg/dl (7-24); CHLORIDE 103 mmol/L (98-107); CREATININE 0.73 mg/dL (0.55-1.02); LIPASE 66 U/L (73-393); POTASSIUM 4.2 mmol/L (3.5-5.1); SGOT/AST 13 IU/L (3-35); SGPT/ALT 17 U/L (12-78); SODIUM 139 mmol/L (136-145); TOTAL PROTEIN 7.4 gm/dL (6.4-8.2); TROPONIN I < 0.015 ng/ml (<0.045)
[2017-10-21 13:05] LABS: BILIRUBIN NEGATIVE (NEGATIVE); BLOOD NEGATIVE (NEGATIVE); CLARITY SL CLOUDY (CLEAR); COLOR YELLOW (YELLOW); GLUCOSE 3+ (NEGATIVE); KETONE NEGATIVE (NEGATIVE); LEUKO ESTERASE NEGATIVE (NEGATIVE); NITRITE NEGATIVE (NEGATIVE); SPECIFIC GRAVITY 1.015 (1.005-1.030); UROBILINOGEN 0.2 E.U./dl (0.2-1.0)
[2017-10-21 13:16] LABS: BACTERIA TRACE; MUCOUS 1+
== END 2017-10-21 13:06 | disposition home or self-care (01) ==
LOC: ED 11:06
PROVIDERS: Emergency Medicine
DX: E86.0 Dehydration (principal); R19.7 Diarrhea, unspecified; R53.1 Weakness; E11.40 Type 2 diabetes mellitus with diabetic neuropathy, unspecified; I10 Essential (primary) hypertension; Z88.8 Allergy status to other drugs, medicaments and biological substances; Z79.899 Other long term (current) drug therapy; Z79.82 Long term (current) use of aspirin

== ENCOUNTER 2018-03-15 10:10 | Emergency (ER) | payer MEDICARE ==
[~2018-03-15] VITALS: Ht 154.9 cm; Wt 45.4 kg
--- NOTE | ~2018-03-15 | EKG ---
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
[2018-03-15 10:32] LABS: BASO % 0.5 % (0.0-1.0); EOS # 0.1 10*3/uL (0.0-0.4); EOS % 1.1 % (1.0-4.0); HEMATOCRIT 35.2 % (37.0-47.0); HEMOGLOBIN 11.6 g/dl (12.0-16.0); LYMPH # 1.4 10*3/uL (1.3-4.4); LYMPH % 19.4 % (27.0-41.0); MEAN CELL VOLUME 90.5 fl (81.0-99.0); MEAN CORPUSCULAR HGB 29.8 pg (27.0-31.0); MEAN PLATELET VOLUME 10.4 fl (9.6-12.3); MONO # 0.4 10*3/uL (0.1-1.0); MONO % 5.4 % (3.0-9.0); NEUT # 5.4 10*3/uL (2.3-7.9); NEUT % 73.1 % (47.0-73.0); PLATELET COUNT AUTOMATED 254 10*3/uL (130-400); RED BLOOD COUNT 3.89 10*6/uL (4.10-5.10); RED CELL DISTRI WIDTH 13.7 % (0-14.5); WHITE BLOOD COUNT 7.4 10*3/uL (4.8-10.8)
[2018-03-15 10:56] LABS: ALBUMIN 3.5 gm/dl (3.1-4.5); ALKALINE PHOSPHATASE 66 U/L (45-117); BUN 19 mg/dl (7-24); CHLORIDE 100 mmol/L (98-107); CREATININE 0.81 mg/dL (0.55-1.02); POTASSIUM 4.3 mmol/L (3.5-5.1); SGOT/AST 9 IU/L (3-35); SGPT/ALT 17 U/L (12-78); SODIUM 136 mmol/L (136-145); TOTAL PROTEIN 7.2 gm/dL (6.4-8.2); TROPONIN I 0.021 ng/ml (<0.045)
[2018-03-15 11:27] LABS: BILIRUBIN NEGATIVE (NEGATIVE); BLOOD NEGATIVE (NEGATIVE); CLARITY CLEAR (CLEAR); COLOR YELLOW (YELLOW); GLUCOSE 3+ (NEGATIVE); KETONE TRACE (NEGATIVE); LEUKO ESTERASE NEGATIVE (NEGATIVE); NITRITE NEGATIVE (NEGATIVE); UROBILINOGEN 0.2 E.U./dl (0.2-1.0)
[2018-03-15 11:40] LABS: BACTERIA TRACE
== END 2018-03-15 12:11 | disposition home or self-care (01) ==
LOC: ED 10:10
PROVIDERS: Emergency Medicine
DX: R51 Headache (principal); R53.1 Weakness; R42 Dizziness and giddiness; E11.40 Type 2 diabetes mellitus with diabetic neuropathy, unspecified; I10 Essential (primary) hypertension; Z79.899 Other long term (current) drug therapy; Z79.84 Long term (current) use of oral hypoglycemic drugs; Z79.82 Long term (current) use of aspirin

== ENCOUNTER 2018-04-08 11:03 | Inpatient (IN) | payer MEDICARE ==
--- NOTE | ~2018-04-08 | EKG ---
[place], [place] ELECTROCARDIOGRAM REPORT NAME: SUNNY HARTLEY UNIT #: [id number] ROOM: 420 DOCTOR: STEPHANIE DRAFT REPORT BIRTHDATE: [birth year] [facility] Test Date: 2018-04-08 Test Time: 11:22:14 Pat Name: SUNNY HARTLEY Department: Room: 420 Gender: F Neonatal Surgeon: MATTHIAS : 1935 Requested By: CHELA ORR Order Number: [id number] Reading MD: Konstantin Rodriguez MD Measurements Intervals [place] Rate: 68 P: -42 NJ: 107 QRS: -52 QRSD: 76 T: 35 QT: 383 QTc: 408 Interpretive Statements Sinus rhythm Short [place] interval Abnormal R-wave progression, late transition Inferior infarct, old Compared to ECG 03/15/2018 10:28:59 Short [place] interval now present Myocardial infarct finding still present Electronically Signed On 04-09-2018 10:47:56 PST by Konstantin Rodriguez MD CM:EKGRPT:ELECTROCARDIOGRAM REPORT [id number] 1047 CHELA TEMPLE DRAFT REPORT CHELA ORR DO
[2018-04-08 11:04] VITALS: BP 133/57
[2018-04-08 11:35] LABS: BASO % 0.4 % (0.0-1.0); EOS # 0.1 10*3/uL (0.0-0.4); EOS % 1.1 % (1.0-4.0); HEMATOCRIT 37.4 % (37.0-47.0); LYMPH # 1.4 10*3/uL (1.3-4.4); LYMPH % 19.2 % (27.0-41.0); MEAN CELL VOLUME 91.9 fl (81.0-99.0); MEAN CORPUSCULAR HGB 29.5 pg (27.0-31.0); MEAN CORPUSCULAR HGB CONC 32.1 g/dl (33.0-37.0); MEAN PLATELET VOLUME 10.7 fl (9.6-12.3); MONO # 0.4 10*3/uL (0.1-1.0); MONO % 4.9 % (3.0-9.0); NEUT # 5.5 10*3/uL (2.3-7.9); PLATELET COUNT AUTOMATED 270 10*3/uL (130-400); RED BLOOD COUNT 4.07 10*6/uL (4.10-5.10); RED CELL DISTRI WIDTH 13.9 % (0-14.5); WHITE BLOOD COUNT 7.5 10*3/uL (4.8-10.8)
[2018-04-08 11:44] LABS: ACT PARTIAL THROMBO TIME 23.6 SECONDS (20.8-31.5)
[2018-04-08 11:45] LABS: BILIRUBIN NEGATIVE (NEGATIVE); BLOOD NEGATIVE (NEGATIVE); CLARITY CLEAR (CLEAR); COLOR YELLOW (YELLOW); GLUCOSE 3+ (NEGATIVE); KETONE TRACE (NEGATIVE); LEUKO ESTERASE NEGATIVE (NEGATIVE); NITRITE NEGATIVE (NEGATIVE); PH 5.5 (5.0-9.0); SPECIFIC GRAVITY 1.015 (1.005-1.030); UROBILINOGEN 0.2 E.U./dl (0.2-1.0)
[2018-04-08 11:52] LABS: ALBUMIN 3.3 gm/dl (3.1-4.5); ALKALINE PHOSPHATASE 67 U/L (45-117); BUN 20 mg/dl (7-24); CHLORIDE 103 mmol/L (98-107); CREATININE 0.88 mg/dL (0.55-1.02); LIPASE 83 U/L (73-393); POTASSIUM 4.9 mmol/L (3.5-5.1); SGOT/AST 9 IU/L (3-35); SGPT/ALT 19 U/L (12-78); SODIUM 135 mmol/L (136-145); TOTAL PROTEIN 7.1 gm/dL (6.4-8.2); TROPONIN I 0.019 ng/ml (<0.045)
--- NOTE | 2018-04-08 14:40 | NUR ---
SMALL SCAB TO LT INNER ANKLE WHICH SHE STATES IS FROM BUMPING HER LEG ON SOMETHING.
--- NOTE | 2018-04-08 14:50 | NUR ---
Time: 1449 A 82 year old FEMALE admitted to under services of MIYA WILBURN DO, Pt. arrived via wheel chair from ER. Chief complaint: METABOLIC ENCEPHALOPATHY, UNSTEADY GAIT. KELY CHAVIRA
[2018-04-08] MEDS ORDERED: GLIPIZIDE5 MG PO (15:33)
[2018-04-08 16:00] VITALS: BP 174/79
[2018-04-08 20:00] VITALS: BP 150/68
[2018-04-09] VITALS: BP 170/82
--- NOTE | 2018-04-09 03:21 | NUR ---
DR OSORIO AWARE OF PATIENT REQUESTING ATIVAN
--- NOTE | 2018-04-09 04:51 | NUR ---
MEDICATED WITH PRN ATIVAN FOR ANXIOUSNESS
[2018-04-09 07:02] LABS: BASO % 0.5 % (0.0-1.0); EOS # 0.1 10*3/uL (0.0-0.4); EOS % 1.4 % (1.0-4.0); HEMATOCRIT 38.7 % (37.0-47.0); HEMOGLOBIN 12.1 g/dl (12.0-16.0); LYMPH # 1.3 10*3/uL (1.3-4.4); LYMPH % 20.8 % (27.0-41.0); MEAN CELL VOLUME 91.9 fl (81.0-99.0); MEAN CORPUSCULAR HGB 28.7 pg (27.0-31.0); MEAN CORPUSCULAR HGB CONC 31.3 g/dl (33.0-37.0); MEAN PLATELET VOLUME 10.5 fl (9.6-12.3); MONO # 0.4 10*3/uL (0.1-1.0); MONO % 5.6 % (3.0-9.0); NEUT # 4.5 10*3/uL (2.3-7.9); NEUT % 71.2 % (47.0-73.0); PLATELET COUNT AUTOMATED 240 10*3/uL (130-400); RED BLOOD COUNT 4.21 10*6/uL (4.10-5.10); RED CELL DISTRI WIDTH 13.7 % (0-14.5); WHITE BLOOD COUNT 6.3 10*3/uL (4.8-10.8)
--- NOTE | 2018-04-09 07:03 | NUR ---
PHYSICAL THERAPY Nursing screen received. PT orders also received. Thank you. Alice Tello,PT
[2018-04-09 07:21] LABS: CHLORIDE 107 mmol/L (98-107); POTASSIUM 4.3 mmol/L (3.5-5.1); SODIUM 142 mmol/L (136-145)
[2018-04-09 07:30] LABS: ALBUMIN 3.2 gm/dl (3.1-4.5); ALKALINE PHOSPHATASE 62 U/L (45-117); BUN 12 mg/dl (7-24); CHOLESTEROL 176 mg/dL (<200); CREATININE 0.62 mg/dL (0.55-1.02); HDL CHOLESTEROL 51 mg/dl (40-60); LDL CHOLESTEROL 102 mg/dL (9-159); PHOSPHOROUS 3.1 mg/dL (2.5-4.9); SGOT/AST 6 IU/L (3-35); SGPT/ALT 18 U/L (12-78); TOTAL PROTEIN 6.8 gm/dL (6.4-8.2); TRIGLYCERIDES 117 mg/dl (<150); VLDL CHOLESTEROL 23 mg/dL (6-40)
[2018-04-09 08:00] VITALS: BP 159/83
[2018-04-09 08:56] LABS: VITAMIN D, 25-HYDROXY 39.6 ng/mL (30-100)
--- NOTE | 2018-04-09 09:00 | NUR ---
Director Emergency Services in to talk to patient. Patient states lives at home with alone. There are few steps in the home. Physician: stewart falcon [facility]acy: [facility] Home health services: none Patient's level of ADLs: MINIMAL ASSIST Patient has working utilities: all working DME: roderick faria Follow-up physician's appointment after d/c: will be made by hospitalist nurse director upon discharge Does patient want to access PORTAL?: no Discharge plan discussed with patient patient lives at home alone, she has children checking in on her, patient states she hasn't been getting around very well lately and would like to go to a SNF for rehab. patient stated she was at [facility] and would like to go back there. estate planner will make referral to [facility] for when patient is medically stable for discharge. patient will need a three night stay and. will be able to go on Thursday if accepted by [facility] and medically stable MIQUEL TELLES
--- NOTE | 2018-04-09 09:05 | NUR ---
PHYSICAL THERAPY PAtient evaluated on 4, full evaluation to follow. Continue with PT as per plan of care with fall and alarm precautions. MAy require SNF. PAtient is moderate complexity via chart review, tests and evaluation: [id number]. Thank you for this reeferral. Alice Tello,PT
--- NOTE | 2018-04-09 09:11 | NUR ---
Salome was evaluated by occupational therapy this date secondary to reports of decreased strength and inability to care for herself at home. Patient lives alone and recently requires increased assist with ADL's and home management. She was able to ambulate with min assist secondary to a loss of balance x1 during assessment. She tolerated standing sinkside and completing a grooming activity for 5 minutes x2 with a rest break between. She requires min assist with lower body dressing and pulling her pants over her hips. She currently requires increased assist with ADL's and functional transfers secondary to decreased balance, decreased endurance, and decreased strength. Continued occupational therapy in a SNF is recommended when patient is discharged. Daniela Pool OTR/Chan
--- NOTE | 2018-04-09 10:50 | NUR ---
Patient requested referral to [facility]. Contacted facility and faxed referral. patient requires 3 night stay. patient ok to go on Thursday04/11/2018 if medically stable for discharge.
[2018-04-09 12:00] VITALS: BP 151/62
--- NOTE | 2018-04-09 13:30 | NUR ---
OT NOTE Pt was seen this P.M. 1:1 for 20 minute OT session. Upon arrival pt was supine in bed, pt identified by name and . Pt had no complaints at this time. Pt transferred supine to sit EOB with SBA. While sitting EOB pt donned her shoes with SBA. Challenged pt's static standing tolerance needed for increased I in self care tasks and functional transfers and pt was able to tolerate aprox 5 minutes at a time before requiring a seated rest break. Challenged pt's dynamic standing tolerance needed for increased I and enhanced safety in ADLs/IADLs and pt was able to maintain F- stanidng balance while crossing midline and reaching forwards or picking up off the floor. Pt had LOB forwards while reaching out in front of her that required Yoshi to correct. Functional mobility completed to recliner with CGA ORTHOPEDIC PODIATRIST and one LOB occuring while turning that required Yoshi to correct due to being impulsive and having poor safety awarenss. Pt was left sitting upright in recliner with call light in hand, tray table in place, and body alarm activated for safety. Continue with rec d/C plan to SNF. FLORA Garcia/Chan
--- NOTE | 2018-04-09 13:41 | NUR ---
PHYSICAL THERAPY Patient presented to therapy in supine with head of bed elevated and report of no pain and feeling better. Patient agrees to therapy session. Patient was identified by name and . Patient transferred supine to sitting at EOB with MIN A X 1. Patient performed STS transfer with MIN A X 1 with verbal cues for pushing off bed with hands. Patient ambulated with W/W and CGA X 1 for 100' x 1 with occassional LOB , corrected with verbal cues from therapist. Patient transferred to bedside chair with MIN A X 1 with verbal cues for putting hands back on armrests. Patient was left in sitting position with call light within reach, LEs raised, and chair alarm attached. Patient was 1:1 with SHERIFF DEPUTY for 20 minutes total. Patient recommended to SNF upon D/C. VEGA AVENDANO SHERIFF DEPUTY
[2018-04-09 16:00] VITALS: BP 139/68
[2018-04-09 20:00] VITALS: BP 159/70
--- NOTE | 2018-04-09 20:05 | NUR ---
DR FERRER AWARE OF NEW SKIN TEAR ON RIGHT PETTY. ORDER TAKEN FOR HYDROGEL AND OPTIFOAM
[2018-04-10] VITALS: BP 158/71
--- NOTE | 2018-04-10 04:20 | NUR ---
PRN ATIVAN GIVEN FOR C/O ANXIOUSNESS
[2018-04-10 08:00] VITALS: BP 157/98
--- NOTE | 2018-04-10 08:23 | NUR ---
IN BED AWAKE ALERT AND ORIENTED X3, VERY [place]. NO S/S OF DISTRESS. WILL CONT TO MONITOR. CALL LIGHT IN REACH. SEE ASSESS.
--- NOTE | 2018-04-10 10:20 | NUR ---
TYLENOL GIVEN AT THIS TIME FOR C/O HEADACHE. WILL CONT TO MONITOR. CALL LIGHT IN REACH.
--- NOTE | 2018-04-10 11:20 | NUR ---
TYLENOL EFF FOR PAIN. WILL CONT TO MONITOR. CALL LIGHT IN REACH.
[2018-04-10 12:00] VITALS: BP 129/54
--- NOTE | 2018-04-10 15:28 | NUR ---
PT VERY ANXIOUS. REQUESTED HER ATIVAN WHICH WAS GIVEN AT THIS TIME. WILL CONT TO MONITOR. CALL LIGHT IN REACH.
[2018-04-10 16:00] VITALS: BP 155/68
--- NOTE | 2018-04-10 16:28 | NUR ---
ATIVAN EFF AT THIS TIME. WILL CONT TO MONITOR. CALL LIGHT IN REACH.
[2018-04-10 20:00] VITALS: BP 160/74
--- NOTE | 2018-04-10 21:00 | NUR ---
AMBULATORY IN ROOM WITH NO ACUTE DISTRESS NOTED. RESPIRATIONS EASY. LUNGS DIMINISHED, CLEAR. PULSE OX 98% RA. CALL LIGHT WITHIN REACH. NO VOICED COMPLAINTS
[2018-04-11] VITALS: BP 150/60
--- NOTE | 2018-04-11 | NUR ---
SLEEPING. RESPIRATIONS EASY. VSS. CALL LIGHT WITHIN REACH. BED ALARM MAINTAINED
--- NOTE | 2018-04-11 01:50 | NUR ---
REQUESTED AND RECEIVED ATIVAN PER PRN ORDER FOR COMPLAINTS OF ANXIETY. WILL MONITOR FOR EFFECTIVENESS
--- NOTE | 2018-04-11 03:00 | NUR ---
ATIVAN EFFECTIVE. SLEEPING
--- NOTE | 2018-04-11 06:00 | NUR ---
SLEPT THROUGHOUT NIGHT WITH NO DISTRESS NOTED. RESPIRATIONS EASY. CALL LIGHT WITHIN REACH. NO VOICED COMPLAINTS THIS SHIFT
[2018-04-11 08:00] VITALS: BP 149/80
[2018-04-11 12:00] VITALS: BP 141/64
--- NOTE | 2018-04-11 12:10 | NUR ---
REPORT CALLED TO MEI AT [facility].
--- NOTE | 2018-04-11 13:07 | NUR ---
PATIENT REQUESTING ANXIETY MEDICATION. ATIVAN ADMINISTERED PRESCRIBED. WILL MONITOR FOR EFFECTIVENESS,
--- NOTE | 2018-04-11 13:42 | NUR ---
PT DISCHARGED AT THIS TIME VIA PRIVATE CAR TO [facility]. IV REMOVED AND PRESSURE DRESSING APPLIED.
--- NOTE | 2018-04-12 06:32 | NUR ---
PHYSICAL THERAPY Nursing screen received. PT orders also received. Thank you. Alice Tello,PT
--- NOTE | 2018-04-12 06:32 | NUR ---
PHYSICAL THERAPY CO-SIGN I approve of the Phyical Therapy notes written above. CATARINA BRITO PT
--- NOTE | 2018-04-12 08:06 | NUR ---
Nursing screen received 04/09/18 and patient was discharged 04/11/18. Violeta Marley OTR/l
--- NOTE | 2018-04-12 08:17 | NUR ---
OCCUPATIONAL THERAPY CO-SIGN I approve of the Occupational Therapy notes written above. ALPHONSO PADILLA OTR/Chan
== END 2018-04-11 14:19 | disposition other institution (70) | DRG 640 ==
LOC: ED 11:03 → EDHOLD 13:45 → 4E 13:45
PROVIDERS: Emergency Medicine; Student in an Organized Health Care Education/Training Program; ADMIT Internal Medicine
DX: E86.0 Dehydration (principal); G93.41 Metabolic encephalopathy; E87.2 Acidosis; E55.9 Vitamin D deficiency, unspecified; R26.9 Unspecified abnormalities of gait and mobility; E11.42 Type 2 diabetes mellitus with diabetic polyneuropathy; F32.9 Major depressive disorder, single episode, unspecified; I10 Essential (primary) hypertension; K22.70 Barrett's esophagus without dysplasia; H91.11 Presbycusis, right ear; R81 Glycosuria; E11.65 Type 2 diabetes mellitus with hyperglycemia; M19.90 Unspecified osteoarthritis, unspecified site; Z79.4 Long term (current) use of insulin; F41.1 Generalized anxiety disorder; Z88.9 Allergy status to unspecified drugs, medicaments and biological substances; Z82.3 Family history of stroke; Z82.49 Family history of ischemic heart disease and other diseases of the circulatory system

== ENCOUNTER → 2018-12-31 | Day surgery (SDC) | payer MEDICARE ==
[~2018-12-31] VITALS: Ht 149.8 cm; Wt 52.2 kg
[~2018-12-31] MED LIST changes: +GLIPIZIDE5 MG PO
--- NOTE | ~2018-12-31 | O ---
[place], [place] OPERATIVE NOTE NAME: SUNNY HARTLEY UNIT #: [id number] ROOM: DOCTOR: JED GIRARD MD BIRTHDATE: [birth year] DOS: 12/31/2018 GASTROENDOSCOPIC REPORT HISTORY OF PRESENT ILLNESS: This is an 83-year-old patient who has presented with chief complaint of dysphagia, undergoing investigation. The patient is residing in a group home. PAST MEDICAL HISTORY: ____, diabetes mellitus and hypertension. ALLERGIES: LISINOPRIL. PROCEDURE: Today's procedure part of investigation is graham endoscopy plus biopsy plus balloon dilation of esophagus. PREMEDICATION: Propofol. SCOPE: Olympus forward-viewing gastroscope Q10 video. REPORT: After putting the patient in left lateral position and application of lubricant to the scope, the scope was introduced. Thereafter, under direct visualization, advanced through the length of esophagus without difficulty. Long segment Saeed esophagus was noticed. Hiatal hernia was seen, which is relatively large. Gastritis noticed. Antral biopsy obtained. Duodenal bulb, second and third part within normal limits. The patient extubated after antral biopsy and esophageal dilation to size 20. IMPRESSION: Benign esophageal stricture, status post balloon dilation, hiatal hernia and gastritis. PLAN AND DISCUSSION: Antireflux measures, elevation of the head of the bed 6 inches all time, Gaviscon as antacid of choice. The patient is going to be continued with pantoprazole 40 mg every day. Thank you very much indeed. [place], [place] OPERATIVE NOTE NAME: SUNNY HARTLEY UNIT #: [id number] ROOM: DOCTOR: JED GIRARD MD BIRTHDATE: [birth year] JED GIRARD MD CM:OPRECORD:OPERATIVE NOTE 1503 1642 JED GIRARD MD 12/31/18 1639 interface
[2018-12-31 15:04] VITALS: BP 133/73
[2018-12-31 15:19] VITALS: BP 161/83
[2018-12-31 15:34] VITALS: BP 172/80
== END | disposition home or self-care (01) ==
LOC: SDC 12-29 11:00
DX: K29.50 Unspecified chronic gastritis without bleeding (principal); K21.9 Gastro-esophageal reflux disease without esophagitis; K44.9 Diaphragmatic hernia without obstruction or gangrene; F41.9 Anxiety disorder, unspecified; I10 Essential (primary) hypertension; E11.9 Type 2 diabetes mellitus without complications; F32.9 Major depressive disorder, single episode, unspecified; E78.00 Pure hypercholesterolemia, unspecified; M19.90 Unspecified osteoarthritis, unspecified site; Z98.890 Other specified postprocedural states; Z79.899 Other long term (current) drug therapy; Z88.8 Allergy status to other drugs, medicaments and biological substances

== ENCOUNTER → 2019-02-02 | Outpatient (CLI) | payer MEDICARE ==
--- NOTE | ~2019-02-02 | PROC NOTE ---
[place], [place] PROCEDURE NOTE NAME: SUNNY HARTLEY UNIT #: [id number] ROOM: DOCTOR: SALBADORGWYN BIRTHDATE: [birth year] DOS: 02/02/2019 MODIFIED BARIUM SWALLOW ORDERING PHYSICIAN: Dr. Jones. RADIOLOGIST: Dr. Olguin. BACKGROUND INFORMATION: The patient, an 83-year-old female, who was seen for a modified barium swallow. This test was ordered due to choking with meals. The patient was alert and pleasantly confused. She reported that she chokes with meals, but was unable to provide any other information. Reports indicate GERD and oropharyngeal dysphagia. [facility], the patient receives a regular diet and thin liquid. During today's assessment, respiratory status was within normal limits. Oral peripheral examination revealed presence of partial upper denture with good fit reported. Lingual, labial and buccal skills were within normal limits in terms of strength, range of motion and coordination. The patient was able to volitionally cough and swallow. METHODS AND MATERIALS USED FOR THE EXAMINATION: The patient was positioned in the lateral plane and the exam was viewed under fluoroscopy. The patient was presented with a variety of consistencies to assess swallowing skills including applesauce mixed with barium presented in half teaspoon amounts, barium-coated cookie given in bite size piece and thin liquid barium taken by cup and straw. ORAL PHASE: Unremarkable. PHARYNGEAL PHASE: Unremarkable. ESOPHAGEAL PHASE: This phase of the swallow was not formally assessed during this exam. IMPRESSIONS AND RECOMMENDATIONS: Based upon assessment results, this 83-year-old patient presents with oral and pharyngeal swallowing skills within normal limits across all consistencies. Recommend the patient remain on regular diet and thin liquid. Results and recommendations were shared with the patient and written copy was provided for education of penitentiary staff. No further therapy is indicated at this time. Thank you very much for this referral. Should you have any questions regarding this patient, please contact the speech pathologist at [phone]. [place], [place] PROCEDURE NOTE NAME: SUNNY HARTLEY UNIT #: [id number] ROOM: DOCTOR: SALBADORGWYN BIRTHDATE: [birth year] [facility] CM:PROCNOTE:PROCEDURE NOTE 1514 2338 [facility]
--- NOTE | ~2019-02-02 | SLPPOC ---
[place], [place] CLIENT SERVICE PROFESSIONAL PLAN OF CARE NAME: SUNNY HARTLEY UNIT #: [id number] ROOM: DOCTOR: COCO LEVINE Patient Name: SUNNY HARTLEY Date: 02/02/2019 Patient Date of : 1935 [facility] Start of Care: 01/11/2019 Reason for Treatment: RAD/SH Visits since start of care: 1 Primary Care Physician: COCO LEVINE Referring Physician: COCO LEVINE Speech-Language Pathology Initial Evaluation Plan of Care Reason for Visit RAD/SH Arrival Information Subjective Initial evaluation completed to generate medical record. [facility] for further information. Medical History Past Medical History Therapist Signature(s) Signed By: Caitie Kruger State License #: [id number] 02/02/2019, 2:59 PM Referring Physician Signature I certify the need for these services furnished under this plan of treatment and while under my care. COCO LEVINE Date/Time CM:SLPPOC 1502 1502 [facility]
--- NOTE | ~2019-02-02 | SLPIE ---
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 Refer to report in [facility] for further information. Medical History Past Medical History [facility] Visit Start Time 2:00 PM Visit End Time 3:00 PM Visit Duration 60 minutes Procedures CPT [place] Code Intervention Modifier Minutes Units 2411033 MOTION FLUOROSCOPY/SWALLOW 60 1 92216 Total Timed Minutes 0 Total Treatment Minutes 60 Therapist Signature(s) Signed By: Caitie Kruger [facility] License #: [id number] 02/02/2019, 2:59 PM CM:ANA 1502 1502 [facility]
--- NOTE | ~2019-02-02 | SHMRC ---
[place], [place] [facility]AP[facility] NAME: SUNNY HARTLEY UNIT #: [id number] ROOM: DOCTOR: COCO LEVINE Patient Name: SUNNY HARTLEY. Date: 02/02/2019 Patient Number: [id number] Treating Therapist:Caitie Kruger Patient Date of : 1935 Location: [facility] Patient Reason for Visit RAD/SH Electronic Signature(s) Signed By: Date: Caitie Kruger 02/02/2019 14:59:53 Entered By: Caitie Kruger on 02/02/2019 14:58:38 Arrival Information Patient Name: SUNNY HARTLEY. Date: 02/02/2019 Patient Number: [id number] Treating Therapist:Caitie Kruger Patient Date of : 1935 Location: [facility] Patient Subjective Initial evaluation completed to generate medical record. Refer to report in [facility] for further information. Electronic Signature(s) Signed By: Date: Caitie Kruger 02/02/2019 14:59:53 Entered By: Caitie Kruger on 02/02/2019 14:58:38 Medical History Patient Name: SUNNY HARTLEY. Date: 02/02/2019 Patient Number: [id number] Treating Therapist:Caitie Kruger Patient Date of : 1935 Location: [facility] Patient Past Medical History Electronic Signature(s) Signed By: Date: Caitie Kruger 02/02/2019 14:59:53 Entered By: Caitie Kruger on 02/02/2019 14:58:38 Allergy List Patient Name: SUNNY HARTLEY. Date: 02/02/2019 Patient Number: [id number] Treating Therapist:Caitie Kruger Patient Date of : 1935 Location: [facility] Patient Electronic Signature(s) Signed By: Date: Caitie Kruger 02/02/2019 14:59:53 Entered By: Caitie Kruger on 02/02/2019 14:58:38 Arrival Information Patient Name: SUNNY HARTLEY. Date: 02/02/2019 Patient Number: [id number] Treating Therapist:Caitie Kruger Patient Date of : 1935 Location: [facility] Patient Subjective Initial evaluation completed to generate medical record. Refer to report in [facility] for further information. Electronic Signature(s) [place], [place] [facility] NAME: SUNNY HARTLEY UNIT #: [id number] ROOM: DOCTOR: COCO LEVINE Signed By: Date: Caitie Kruger 02/02/2019 14:59:53 Entered By: Caitie Kruger on 02/02/2019 14:58:38 SuperBill Patient Name: SUNNY HARTLYE. Date: 02/02/2019 Patient Number: [id number] Treating Therapist:Caitie Kruger Patient Date of : 1935 Location: [facility] Patient Visit Start Time 2:00 PM Visit End Time 3:00 PM Visit Duration 60 minutes Procedures CPT [place] Code Intervention Modifier Minutes Units 17369 [id number] MOTION FLUOROSCOPY/SWALLOW 60 1 Total Timed Minutes 0 Total Treatment Minutes 60 Electronic Signature(s) Signed By: Date: Caitie Kruger 02/02/2019 14:59:53 Entered By: Caitie Kruger on 02/02/2019 14:59:28 Chief Complaint Patient Name: SUNNY HARTLEY. Date: 02/02/2019 Patient Number: [id number] Treating Therapist:Caitie Kruger Patient Date of : 1935 Location: [facility] Patient Reason for Visit RAD/SH Electronic Signature(s) Signed By: Date: Caitie Kruger 02/02/2019 14:59:53 Entered By: Caitie Kruger on 02/02/2019 14:58:38 Medical History Patient Name: SUNNY HARTLEY. Date: 02/02/2019 Patient Number: [id number] Treating Therapist:Caitie Kruger Patient Date of : 1935 Location: [facility] Patient Past Medical History Electronic Signature(s) Signed By: Date: Caitie Kruger 02/02/2019 14:59:53 Entered By: Caitie Kruger on 02/02/2019 14:58:38 Allergy List Patient Name: SUNNY HARTLEY. Date: 02/02/2019 Patient Number: [id number] Treating Therapist:Caitie Kruger Patient Date of : 1935 [facility] Patient Electronic Signature(s) Signed By: Date: [place], [place] [facility] NAME: SUNNY HARTLEY UNIT #: [id number] ROOM: DOCTOR: COCO LEVINE Maryann 02/02/2019 14:59:53 Entered By: Caitie Kruger on 02/02/2019 14:58:38 CM:[facility] 1502 1502 [facility]
--- NOTE | 2019-02-02 14:43 | NUR ---
SPEECH PATHOLOGY Outpatient MBS completed as per orders. Patient endorsed choking when eating. Medical history includes GERD and oropharyngeal dysphagia. She was assessed with puree, solid and thin liquids by cup and straw. Oral and pharyngeal swallowing skills were WNL across all consistencies. Recommend patient remain on regular diet and thin liquids. Results and arvind. were shared with patient and written copy was provided for education of NH staff. Dictated report to follow. Thank you for this referral. GWYN [facility]-PHYSICAL CHEMISTRY TEACHER
== END | disposition home or self-care (01) ==
LOC: RAD/SH 01-11 01:31
DX: R13.13 Dysphagia, pharyngeal phase (principal)

== ENCOUNTER 2020-08-05 13:30 | Inpatient (IN) | payer MEDICARE ==
[~2020-08-05] VITALS: Ht 152.4 cm; Wt 52.2 kg
[2020-08-05 13:34] VITALS: BP 117/54
[2020-08-05 13:53] LABS: BASO # 0.1 10*3/uL (0.0-0.1); BASO % 0.5 % (0.0-1.0); EOS # 0.4 10*3/uL (0.0-0.4); EOS % 3.6 % (1.0-4.0); HEMATOCRIT 29.9 % (37.0-47.0); LYMPH # 2.8 10*3/uL (1.3-4.4); LYMPH % 25.2 % (27.0-41.0); MEAN CELL VOLUME 86.2 fl (81.0-99.0); MEAN CORPUSCULAR HGB 25.9 pg (27.0-31.0); MEAN CORPUSCULAR HGB CONC 30.1 g/dl (33.0-37.0); MEAN PLATELET VOLUME 10.7 fl (9.6-12.3); MONO # 0.8 10*3/uL (0.1-1.0); MONO % 7.2 % (3.0-9.0); NEUT # 6.8 10*3/uL (2.3-7.9); NEUT % 61.9 % (47.0-73.0); PLATELET COUNT AUTOMATED 382 10*3/uL (130-400); RED BLOOD COUNT 3.47 10*6/uL (4.10-5.10)
[2020-08-05 14:04] LABS: ACT PARTIAL THROMBO TIME 23.6 SECONDS (20.0-32.1)
[2020-08-05 14:08] LABS: ALBUMIN 3.2 gm/dl (3.1-4.5); ALKALINE PHOSPHATASE 83 U/L (45-117); BUN 21 mg/dl (7-24); CHLORIDE 109 mmol/L (98-107); CREATININE 1.05 mg/dL (0.55-1.02); POTASSIUM 5.2 mmol/L (3.5-5.1); SGOT/AST 11 IU/L (3-35); SGPT/ALT 17 U/L (12-78); SODIUM 140 mmol/L (136-145); TOTAL PROTEIN 7.9 gm/dL (6.4-8.2)
[2020-08-05 16:11] VITALS: BP 126/61
[2020-08-05 18:00] VITALS: BP 129/65
[2020-08-05 18:36] VITALS: BP 129/65
[2020-08-05] MEDS ORDERED: FARXIGA10 M1 PO (18:46)
[2020-08-05] MEDS ORDERED: FAMOTIDINE40 MG PO (18:47)
[2020-08-05] MEDS ORDERED: ONDANSETRON4 MG SL (18:47)
[2020-08-05] MEDS ORDERED: GLUCAGON EMERGEN1 M1 IJ (18:48)
[2020-08-06] VITALS (8 sets, daily range): BP systolic 131–181; BP diastolic 66–97
[2020-08-06 06:27] LABS: BASO # 0.1 10*3/uL (0.0-0.1); BASO % 0.4 % (0.0-1.0); EOS # 0.1 10*3/uL (0.0-0.4); EOS % 0.7 % (1.0-4.0); HEMATOCRIT 29.8 % (37.0-47.0); LYMPH # 1.6 10*3/uL (1.3-4.4); LYMPH % 13.1 % (27.0-41.0); MEAN CELL VOLUME 85.1 fl (81.0-99.0); MEAN CORPUSCULAR HGB 25.4 pg (27.0-31.0); MEAN CORPUSCULAR HGB CONC 29.9 g/dl (33.0-37.0); MEAN PLATELET VOLUME 10.4 fl (9.6-12.3); MONO % 8.6 % (3.0-9.0); NEUT # 9.2 10*3/uL (2.3-7.9); NEUT % 76.9 % (47.0-73.0); PLATELET COUNT AUTOMATED 353 10*3/uL (130-400); RED CELL DISTRI WIDTH 16.2 % (0-14.5)
[2020-08-06 06:47] LABS: BUN 21 mg/dl (7-24); CHLORIDE 106 mmol/L (98-107); CREATININE 0.74 mg/dL (0.55-1.02); POTASSIUM 4.5 mmol/L (3.5-5.1); SODIUM 138 mmol/L (136-145)
[2020-08-06 06:58] LABS: FREE T4 0.96 ng/dl (0.76-1.46)
[2020-08-07] VITALS: BP 127/64
[2020-08-07 06:42] LABS: BASO % 0.1 % (0.0-1.0); HEMATOCRIT 27.7 % (37.0-47.0); LYMPH % 8.3 % (27.0-41.0); MEAN CELL VOLUME 84.7 fl (81.0-99.0); MEAN CORPUSCULAR HGB 25.4 pg (27.0-31.0); MEAN PLATELET VOLUME 10.4 fl (9.6-12.3); MONO # 1.1 10*3/uL (0.1-1.0); MONO % 9.1 % (3.0-9.0); NEUT # 9.6 10*3/uL (2.3-7.9); PLATELET COUNT AUTOMATED 327 10*3/uL (130-400); RED BLOOD COUNT 3.27 10*6/uL (4.10-5.10); RED CELL DISTRI WIDTH 16.1 % (0-14.5); WHITE BLOOD COUNT 11.7 10*3/uL (4.8-10.8)
[2020-08-07 07:06] LABS: BUN 27 mg/dl (7-24); CHLORIDE 108 mmol/L (98-107); CREATININE 0.88 mg/dL (0.55-1.02); POTASSIUM 4.8 mmol/L (3.5-5.1); SODIUM 137 mmol/L (136-145)
[2020-08-07 08:00] VITALS: BP 139/53
[2020-08-07 12:00] VITALS: BP 127/56
[2020-08-07 16:00] VITALS: BP 128/43
[2020-08-07 20:00] VITALS: BP 124/55
[2020-08-08] VITALS: BP 148/53
[2020-08-08 06:39] LABS: BASO % 0.3 % (0.0-1.0); EOS # 0.3 10*3/uL (0.0-0.4); EOS % 2.5 % (1.0-4.0); HEMATOCRIT 27.9 % (37.0-47.0); LYMPH # 1.3 10*3/uL (1.3-4.4); LYMPH % 12.7 % (27.0-41.0); MEAN CELL VOLUME 85.6 fl (81.0-99.0); MEAN CORPUSCULAR HGB 25.8 pg (27.0-31.0); MEAN CORPUSCULAR HGB CONC 30.1 g/dl (33.0-37.0); MEAN PLATELET VOLUME 10.4 fl (9.6-12.3); MONO # 0.8 10*3/uL (0.1-1.0); MONO % 7.9 % (3.0-9.0); NEUT # 7.8 10*3/uL (2.3-7.9); NEUT % 76.1 % (47.0-73.0); PLATELET COUNT AUTOMATED 305 10*3/uL (130-400); RED BLOOD COUNT 3.26 10*6/uL (4.10-5.10); RED CELL DISTRI WIDTH 16.2 % (0-14.5); WHITE BLOOD COUNT 10.2 10*3/uL (4.8-10.8)
[2020-08-08 08:05] VITALS: BP 120/58
[2020-08-08 12:10] VITALS: BP 115/52
[2020-08-08 16:11] VITALS: BP 116/74
[2020-08-08 20:00] VITALS: BP 131/56
[2020-08-09] VITALS: BP 126/50
[2020-08-09 06:26] LABS: BASO % 0.4 % (0.0-1.0); EOS # 0.4 10*3/uL (0.0-0.4); HEMATOCRIT 26.2 % (37.0-47.0); LYMPH # 1.6 10*3/uL (1.3-4.4); LYMPH % 14.9 % (27.0-41.0); MEAN CELL VOLUME 87.3 fl (81.0-99.0); MEAN CORPUSCULAR HGB 25.7 pg (27.0-31.0); MEAN CORPUSCULAR HGB CONC 29.4 g/dl (33.0-37.0); MEAN PLATELET VOLUME 10.7 fl (9.6-12.3); MONO # 0.9 10*3/uL (0.1-1.0); MONO % 8.3 % (3.0-9.0); NEUT # 7.6 10*3/uL (2.3-7.9); NEUT % 71.7 % (47.0-73.0); PLATELET COUNT AUTOMATED 324 10*3/uL (130-400); RED CELL DISTRI WIDTH 16.3 % (0-14.5); WHITE BLOOD COUNT 10.6 10*3/uL (4.8-10.8)
[2020-08-09 08:00] VITALS: BP 121/57
[2020-08-09 12:00] VITALS: BP 122/60
[2020-08-09] MEDS ORDERED: ASPIRIN ADULT L81 M1 PO (12:32)
[2020-08-09] MEDS ORDERED: LORAZEPAM0.5 MG PO (12:32)
== END 2020-08-09 18:28 | DRG 480 ==
LOC: ED 13:30 → EDHOLD 16:21 → 5E 16:21
PROVIDERS: Emergency Medicine; Orthopaedic Surgery; Student in an Organized Health Care Education/Training Program; ADMIT Emergency Medicine; ATTEND Emergency Medicine
PROC: 0QH606Z Insertion of Intramedullary Internal Fixation Device into Right Upper Femur, Open Approach (ICD-10-PCS; principal; 2020-08-06)
DX: S72.144A Nondisplaced intertrochanteric fracture of right femur, initial encounter for closed fracture (principal); N17.0 Acute kidney failure with tubular necrosis; D64.9 Anemia, unspecified; E87.5 Hyperkalemia; F32.9 Major depressive disorder, single episode, unspecified; F41.1 Generalized anxiety disorder; I10 Essential (primary) hypertension; M17.10 Unilateral primary osteoarthritis, unspecified knee; E87.8 Other disorders of electrolyte and fluid balance, not elsewhere classified; E11.42 Type 2 diabetes mellitus with diabetic polyneuropathy; Z20.822 Contact with and (suspected) exposure to COVID-19; Z66 Do not resuscitate; Z51.5 Encounter for palliative care; W18.39XA Other fall on same level, initial encounter; Z98.42 Cataract extraction status, left eye; Z98.41 Cataract extraction status, right eye; Z82.49 Family history of ischemic heart disease and other diseases of the circulatory system; Z82.3 Family history of stroke; Z88.8 Allergy status to other drugs, medicaments and biological substances; Y93.89 Activity, other specified; Y92.89 Other specified places as the place of occurrence of the external cause; Y99.8 Other external cause status

== ENCOUNTER → 2020-08-24 | Outpatient (CLI) | payer MEDICARE ==
[~2020-08-24] MED LIST changes: +ASPIRIN ADULT L81 M1 PO; +FAMOTIDINE40 MG PO; +FARXIGA10 M1 PO; +GLUCAGON EMERGEN1 M1 IJ; +ONDANSETRON4 MG SL
== END | disposition home or self-care (01) ==
LOC: ORTHO 00:25
PROVIDERS: ATTEND Orthopaedic Surgery
DX: S72.144D Nondisplaced intertrochanteric fracture of right femur, subsequent encounter for closed fracture with routine healing (principal); X58.XXXD Exposure to other specified factors, subsequent encounter

== ENCOUNTER → 2020-10-04 | Outpatient (CLI) | payer MEDICARE | END | disposition home or self-care (01) | LOC: ORTHO 00:35 | PROVIDERS: ATTEND Orthopaedic Surgery | DX: S72.144D Nondisplaced intertrochanteric fracture of right femur, subsequent encounter for closed fracture with routine healing (principal); X58.XXXD Exposure to other specified factors, subsequent encounter ==

== ENCOUNTER → 2021-01-29 | Outpatient (CLI) | payer MEDICARE ==
[2021-01-29 08:41] VITALS: BP 120/60
[2021-01-29 09:09] VITALS: BP 160/84
[2021-01-29 09:30] VITALS: BP 113/44
[2021-01-29 10:00] VITALS: BP 127/54
[2021-01-29 11:00] VITALS: BP 108/52
[2021-01-29 11:45] VITALS: BP 106/54
== END | disposition home or self-care (01) ==
LOC: TRNFUSION 00:38
PROVIDERS: ATTEND Nurse Practitioner Adult Health
DX: D64.9 Anemia, unspecified (principal); I10 Essential (primary) hypertension; F32.9 Major depressive disorder, single episode, unspecified; E11.9 Type 2 diabetes mellitus without complications; M19.90 Unspecified osteoarthritis, unspecified site; K21.9 Gastro-esophageal reflux disease without esophagitis; F41.9 Anxiety disorder, unspecified

== ENCOUNTER 2021-11-28 20:50 | Inpatient (IN) | payer MEDICARE ==
[~2021-11-28] VITALS: Ht 165.1 cm; Wt 51.3 kg
[2021-11-28 20:51] VITALS: BP 163/80
[2021-11-28 21:10] LABS: BASO % 0.3 % (0.0-1.0); EOS # 0.2 10*3/uL (0.0-0.4); EOS % 1.2 % (1.0-4.0); LYMPH # 1.2 10*3/uL (1.3-4.4); LYMPH % 9.4 % (27.0-41.0); MEAN CELL VOLUME 74.2 fl (81.0-99.0); MEAN CORPUSCULAR HGB CONC 29.6 g/dl (33.0-37.0); MEAN PLATELET VOLUME 9.8 fl (9.6-12.3); MONO # 0.7 10*3/uL (0.1-1.0); NEUT % 83.7 % (47.0-73.0); PLATELET COUNT AUTOMATED 313 10*3/uL (130-400); RED BLOOD COUNT 3.37 10*6/uL (4.10-5.10); RED CELL DISTRI WIDTH 18.9 % (0-14.5); WHITE BLOOD COUNT 13.1 10*3/uL (4.8-10.8)
[2021-11-28 21:25] LABS: ALKALINE PHOSPHATASE 74 U/L (45-117); BUN 27 mg/dl (7-24); CHLORIDE 112 mmol/L (98-107); CREATININE 0.77 mg/dL (0.55-1.02); SGOT/AST 7 IU/L (3-35); SGPT/ALT 13 U/L (12-78); SODIUM 143 mmol/L (136-145); TOTAL PROTEIN 7.3 gm/dL (6.4-8.2)
[2021-11-29] VITALS (10 sets, daily range): BP systolic 118–178; BP diastolic 46–86
[2021-11-29 07:34] LABS: BASO % 0.4 % (0.0-1.0); EOS # 0.2 10*3/uL (0.0-0.4); EOS % 1.7 % (1.0-4.0); HEMATOCRIT 25.8 % (37.0-47.0); LYMPH # 2.2 10*3/uL (1.3-4.4); LYMPH % 23.1 % (27.0-41.0); MEAN CELL VOLUME 75.4 fl (81.0-99.0); MEAN CORPUSCULAR HGB 21.9 pg (27.0-31.0); MEAN CORPUSCULAR HGB CONC 29.1 g/dl (33.0-37.0); MEAN PLATELET VOLUME 9.9 fl (9.6-12.3); MONO # 0.5 10*3/uL (0.1-1.0); MONO % 5.6 % (3.0-9.0); NEUT # 6.4 10*3/uL (2.3-7.9); PLATELET COUNT AUTOMATED 333 10*3/uL (130-400); RED BLOOD COUNT 3.42 10*6/uL (4.10-5.10); RED CELL DISTRI WIDTH 19.3 % (0-14.5); WHITE BLOOD COUNT 9.3 10*3/uL (4.8-10.8)
[2021-11-29 07:57] LABS: ALKALINE PHOSPHATASE 75 U/L (45-117); CHLORIDE 112 mmol/L (98-107); CREATININE 0.76 mg/dL (0.55-1.02); SGOT/AST 8 IU/L (3-35); SGPT/ALT 13 U/L (12-78); SODIUM 145 mmol/L (136-145); TOTAL PROTEIN 7.3 gm/dL (6.4-8.2)
[2021-11-29 08:17] LABS: BUN 15 mg/dl (7-24)
[2021-11-29] MEDS ORDERED: NAMENDA-5 PO ×2 (18:50→18:51)
[2021-11-29] MEDS ORDERED: RIVASTIGMINE T4.5 M1 PO (18:53)
[2021-11-29] MEDS ORDERED: MIRTAZAPINE15 M2 PO (18:55)
[2021-11-29] MEDS ORDERED: VISTARIL50 MG PO (18:55)
[2021-11-29] MEDS ORDERED: ATIVAN1 MG PO (18:58)
[2021-11-29] MEDS ORDERED: INSULIN GL100 UNIT/3 SQ (19:02)
[2021-11-30] VITALS: BP 187/86
[2021-11-30 06:32] LABS: BASO % 0.4 % (0.0-1.0); EOS # 0.3 10*3/uL (0.0-0.4); EOS % 3.5 % (1.0-4.0); LYMPH # 1.5 10*3/uL (1.3-4.4); LYMPH % 18.4 % (27.0-41.0); MEAN CORPUSCULAR HGB 25.1 pg (27.0-31.0); MEAN CORPUSCULAR HGB CONC 30.9 g/dl (33.0-37.0); MEAN PLATELET VOLUME 10.8 fl (9.6-12.3); MONO # 0.5 10*3/uL (0.1-1.0); MONO % 6.1 % (3.0-9.0); NEUT # 5.9 10*3/uL (2.3-7.9); NEUT % 71.2 % (47.0-73.0); PLATELET COUNT AUTOMATED 338 10*3/uL (130-400); RED BLOOD COUNT 3.95 10*6/uL (4.10-5.10); RED CELL DISTRI WIDTH 20.5 % (0-14.5); WHITE BLOOD COUNT 8.2 10*3/uL (4.8-10.8)
[2021-11-30 06:48] LABS: BUN 14 mg/dl (7-24); CHLORIDE 110 mmol/L (98-107); CHOLESTEROL 147 mg/dL (<200); POTASSIUM 4.7 mmol/L (3.5-5.1); SGOT/AST 13 IU/L (3-35); SGPT/ALT 19 U/L (12-78); SODIUM 141 mmol/L (136-145); TOTAL PROTEIN 7.6 gm/dL (6.4-8.2); TRIGLYCERIDES 87 mg/dl (<150)
[2021-11-30 06:50] LABS: ALKALINE PHOSPHATASE 83 U/L (45-117); LDL CHOLESTEROL 73 mg/dL (9-159)
[2021-11-30 08:00] VITALS: BP 177/94
[2021-11-30 12:00] VITALS: BP 153/55
[2021-11-30 16:00] VITALS: BP 171/63
[2021-11-30 20:00] VITALS: BP 160/62
[2021-12-01] VITALS: BP 152/58
[2021-12-01 06:27] LABS: BASO % 0.5 % (0.0-1.0); EOS # 0.3 10*3/uL (0.0-0.4); EOS % 3.7 % (1.0-4.0); HEMATOCRIT 31.5 % (37.0-47.0); LYMPH # 2.1 10*3/uL (1.3-4.4); LYMPH % 24.8 % (27.0-41.0); MEAN CELL VOLUME 81.2 fl (81.0-99.0); MEAN CORPUSCULAR HGB 25.3 pg (27.0-31.0); MEAN CORPUSCULAR HGB CONC 31.1 g/dl (33.0-37.0); MEAN PLATELET VOLUME 11.1 fl (9.6-12.3); MONO # 0.7 10*3/uL (0.1-1.0); MONO % 7.9 % (3.0-9.0); NEUT # 5.2 10*3/uL (2.3-7.9); NEUT % 62.7 % (47.0-73.0); PLATELET COUNT AUTOMATED 308 10*3/uL (130-400); RED BLOOD COUNT 3.88 10*6/uL (4.10-5.10); RED CELL DISTRI WIDTH 21.1 % (0-14.5); WHITE BLOOD COUNT 8.3 10*3/uL (4.8-10.8)
[2021-12-01 06:44] LABS: BUN 15 mg/dl (7-24); CHLORIDE 108 mmol/L (98-107); CREATININE 0.76 mg/dL (0.55-1.02); POTASSIUM 4.4 mmol/L (3.5-5.1); SODIUM 144 mmol/L (136-145)
[2021-12-01 09:00] VITALS: BP 146/81
[2021-12-01] MEDS ORDERED: Carafate1 GM PO (11:49)
[2021-12-01] MEDS ORDERED: MACROBID100 M1 PO (11:49)
[2021-12-01] MEDS ORDERED: LOPRESSOR25 MG PO (11:49)
[2021-12-01] MEDS ORDERED: PROTONIX40 MG PO (11:49)
[2021-12-01] MEDS ORDERED: ATIVAN1 MG PO (11:50)
[2021-12-01 12:00] VITALS: BP 159/70
== END 2021-12-01 14:52 | DRG 281 ==
LOC: ED 20:50 → EDHOLD 11-29 00:03 → 4E 11-29 15:24
PROVIDERS: Emergency Medicine; Internal Medicine; ADMIT Family Medicine; ATTEND Family Medicine
PROC: 30233N1 Transfusion of Nonautologous Red Blood Cells into Peripheral Vein, Percutaneous Approach (ICD-10-PCS; principal; 2021-11-29)
DX: I21.4 Non-ST elevation (NSTEMI) myocardial infarction (principal); K92.0 Hematemesis; N39.0 Urinary tract infection, site not specified; J40 Bronchitis, not specified as acute or chronic; D64.9 Anemia, unspecified; Z66 Do not resuscitate; Z51.5 Encounter for palliative care; Z20.822 Contact with and (suspected) exposure to COVID-19; B96.89 Other specified bacterial agents as the cause of diseases classified elsewhere; E11.65 Type 2 diabetes mellitus with hyperglycemia; R00.1 Bradycardia, unspecified; I10 Essential (primary) hypertension; Z79.899 Other long term (current) drug therapy; Z88.8 Allergy status to other drugs, medicaments and biological substances; Z82.3 Family history of stroke; Z82.49 Family history of ischemic heart disease and other diseases of the circulatory system

== ENCOUNTER → 2023-02-27 | Outpatient (CLI) | payer MEDICARE ==
[2023-02-27] VITALS (9 sets, daily range): BP systolic 132–163; BP diastolic 63–83
[~2023-02-27] MED LIST changes: +AMOX-CLAV 875-1 EACH PO; +ASPERCREME76.5 GM T; +ATORVASTATIN CA40 M1 PO; +CRANBERRY250 MG PO; +Carafate1 GM PO; +Carafate1 GM/10 ML PO; +IBU800 M1 PO; +INSULIN GL100 UNIT/3 SQ; +INSULIN GL100 UNIT/5 SQ; +Ipratropium Brom3 ML INH; +LOPRESSOR25 MG PO; +Lopressor25 MG PO; +MACROBID100 M1 PO; +MEMANTINE HCL10 MG PO; +METOPROLOL SUCC25 M2 PO; +MIRTAZAPINE15 M2 PO; +NAMENDA-5 PO; +ONDANSETRON HYDR4 MG PO; +PROTONIX40 MG PO; +RIVASTIGMINE T4.5 M1 PO; +RIVASTIGMINE TAR6 M1 PO; +VISTARIL50 MG PO
== END | disposition home or self-care (01) ==
LOC: TRNFUSION 00:41
PROVIDERS: ATTEND Internal Medicine
DX: D64.9 Anemia, unspecified (principal); I10 Essential (primary) hypertension; E11.9 Type 2 diabetes mellitus without complications; K21.9 Gastro-esophageal reflux disease without esophagitis; E78.5 Hyperlipidemia, unspecified; M19.90 Unspecified osteoarthritis, unspecified site; F32.A Depression, unspecified; F41.9 Anxiety disorder, unspecified